=== PATIENT | female | born 1965 | race Caucasian/White ===

== ENCOUNTER 2024-02-12 13:00 | Emergency (ER) | payer OTHER, SELFPAY ==
[2024-02-12 13:06] VITALS: BP 131/60; PULSE 82; TEMP 36.6; O2SAT 95; BMI 28.3
--- NOTE | 2024-02-12 13:31 | US_ITS ---
The [address] [address] Patient Name: LATASHA NAVARRO MRN: [id number] date: 1965 Sex: F Assigned Patient Location: ED.MAIN Current Patient Location: ER Accession/Order Number: [id number] Exam Date: 02/12/2024 14:08 Report Date: 02/12/2024 15:02 At the request of: CARMELA NOBLE Procedure: US right upper quadrant EXAMINATION: US right upper quadrant HISTORY: RUQ pain, tenderness COMPARISON: No relevant comparison available. TECHNIQUE: Transabdominal evaluation of the right upper quadrant. FINDINGS: LIVER: Normal size and echotexture. Color Doppler demonstrates patent hepatic veins. PORTAL VEIN: Duplex Doppler demonstrates normal hepatopetal flow pattern with flow velocity averaging 21 cm/s. GALLBLADDER: No visible gallstones, wall thickening, or pericholecystic free fluid. Negative sonographic Canela's sign. BILIARY: No abnormal dilation or stones. Common bile duct diameter is within normal limits. PANCREAS: No visible mass, abnormal atrophy, or duct dilation. KIDNEY: No hydronephrosis. No visible mass or stones. Size: 12.7 x 5.9 x 5.2 cm US/US right upper quadrant IMPRESSION: 1. Limited evaluation of the gallbladder due to overlying bowel gas. 2. No appreciable acute abnormality secondary findings to suggest cholecystitis. Electronically authenticated by: CHERIE RUSH Date: 02/12/2024 15:02
--- NOTE | 2024-02-12 13:31 | ED_ITS ---
HPI - Abdominal Pain General Chief Complaint: Abdominal Pain Stated Complaint: GALL BLADDER PAIN Time Seen by Provider: 02/12/24 13:14 Source: patient Mode of arrival: walk-in History of Present Illness HPI narrative: 58-year-old female presents to the emergency department with complaint of abdominal pain. Onset 5 days ago. Acutely worse since this morning. Locating pain to the epigastric and right upper quadrant regions. Describes as sharp with radiation into her back. Has had nausea, no vomiting. Known history of gallstones. Patient also with history of nonalcoholic induced cirrhosis. Denies any fever, diarrhea. Quality:?Sharp Severity:?Moderate Timing:?As above, constant, worse today Context: Normal setting and activity? Modifying factors:?Pain worse with palpation Associated symptoms: As above Related Data Previous Rx's ?Medication ?Instructions ?Recorded famotidine 20 mg tablet (Pepcid) 20 mg PO BID #20 tabs 02/12/24 ibuprofen 600 mg tablet 600 mg PO Q8H PRN pain #20 tabs 02/12/24 ondansetron 4 mg disintegrating 4 mg PO Q8H PRN nausea and 02/12/24 tablet vomiting #10 tabs Allergies Allergy/AdvReac Type Severity Reaction Status Date / Time amoxicillin (From Augmentin) AdvReac Severe Hives Verified 02/12/24 13:06 clavulanic acid (From AdvReac Severe Hives Verified 02/12/24 13:06 Augmentin) metoclopramide (From Reglan) AdvReac Severe Muscle Pain Verified 02/12/24 13:06 Review of Systems ROS Narrative CONST: Denies any fever, chills RESP: Denies any shortness of breath CV: Denies any chest pain GI: +abd pain.? + nausea. Denies vomiting, diarrhea. : Denies any flank pain, dysuria MS: Denies any back pain, myalgias SKIN: Denies any color change, rash NEURO: Denies numbness, weakness PSYCHIATRIC: Denies confusion, agitation PFSH PFSH Social History Little interest or pleasure in doing things: not at all Feeling down, depressed, or hopeless: not at all Exam Narrative Exam Narrative: Vital signs reviewed Nurses notes noted CONST: Nontoxic, uncomfortable appearing, well nourished, in no distress.? No diaphoresis.?? HENT: normocephalic, atraumatic, moist mucous membrane, no abnormalities of the nose noted, hearing normal EYES: normal appearing conjunctiva, no apparent discharge bilat NECK: normal appearance CV: normal rate, regular rhythm, no murmur RESP: normal effort, speaking in complete sentences. Lung sounds clear and equal bilat.? No wheezes, rales, rhonchi GI: normal bowel sounds, soft, no distension, + tenderness to the epigastric and right upper quadrant regions. No rebound or guarding : no CVA tenderness MS: no edema, tenderness SKIN: no pallor NEURO: A&Ox 3, no focal findings PSYCH: normal mood, affect Constitutional Vital Signs, click to edit/add: Last Vital Signs Temp 97.9 F 02/12/24 13:06 Pulse 75 02/12/24 16:25 Resp 20 02/12/24 16:25 BP 120/56 02/12/24 16:25 Pulse Ox 92 L 02/12/24 16:25 O2 Del Method Room Air 02/12/24 16:25 Course Reevaluation(s) Reevaluation #1: Pain improved. Patient refusing transfer. She refused.? A thorough explanation of the risks and benefits of admission were discussed with her. This included but not limited to worsening pain, fevers, infection, biliary obstruction. She was informed of the risks and understood the risks, including but not limited to sudden , and continued to refuse.? She is awake, alert and competent and fully understands the potential ramifications of this decision. She understands that they may return at anytime for admission and/or further treatment should they change their mind. She states she will be contacting her fire management specialist in the morning to discuss further testing, evaluation. Time: 17:47 Vital Signs Vital signs: Vital Signs Temperature 97.9 F 02/12/24 13:06 Pulse Rate 82 02/12/24 13:06 Respiratory Rate 18 02/12/24 13:06 Blood Pressure 131/60 02/12/24 13:06 Pulse Oximetry 95 02/12/24 13:06 Oxygen Delivery Method Room Air 02/12/24 13:06 Temperature 97.9 F 02/12/24 13:06 Pulse Rate 75 02/12/24 16:25 Respiratory Rate 20 02/12/24 16:25 Blood Pressure 120/56 02/12/24 16:25 Pulse Oximetry 92 L 02/12/24 16:25 Oxygen Delivery Method Room Air 02/12/24 16:25 MDM - Abdominal Pain MDM Narrative Medical decision making narrative: This is a pleasant 58-year-old female presented to the emergency department with complaint of abdominal pain. Mainly located to the epigastric and right upper quadrant regions. Has known history of gallbladder stones, as well as, nonalc oholic cirrhosis. Has had associated nausea. Pain was worse today. On arrival, afebrile, vital signs stable On exam, nontoxic, somewhat uncomfortable appearing patient, in no apparent distress. Heart regular rate and rhythm. Lung sounds clear and equal bilaterally. Patient complains of tenderness mainly epigastric right upper quadrant regions. No other tenderness noted throughout the abdomen. No rebound or guarding. Neck IV access established, blood work was drawn Labs reveal no leukocytosis, anemia. Platelet count was a little low at 123. No electrolyte imbalance, renal impairment. Glucose 100. LFTs are not elevated. Lipase was 15. Urinalysis unremarkable. Ultrasound performed which, per radiology report reveals limited evaluation of the gallbladder due to overlying bowel gas. No appreciable acute abnormality secondary findings to suggest cholecystitis. CT abdomen pelvis imaging, per radiologist feels cholelithiasis and abnormally dilated gallbladder and common bile duct, but no appreciable wall thickening or surrounding inflammatory changes. Favor biliary colic, early bile duct obstruction Cholecystitis less likely based on imaging Medical recommendation at this time made for transfer to facility capable of ERCP, MRCP, surgery, gastroenterology. Call was initially placed to [facility]. Discussed with surgery on-call who states that they do not have ERCP or MRCP capabilities. We were looking for an appropriate hospital to transfer patient when patient made decision that she wanted to sign out AGAINST MEDICAL ADVICE. Her pain had improved. Patient states that she wants to follow-up with her established fire management specialist on her pain, CT report. Further discussion noted above in ED course. History and Record Review Additional records reviewed: No prior records available Management Discussion with another healthcare provider: Surgery at [facility] Additional Tests and Interventions IV fluids IV fluids: hydration Re-Evaluation See ED course, Disposition/plan ED disposition: Plan: Patient will be discharged to home AGAINST MEDICAL ADVICE.? Condition at time of disposition: stable, improved. Prescriptions sent to pharmacy: Pepcid, Zofran, ibuprofen Admission was considered. See MDM narrative above. PLEASE NOTE: Portions of the medical record may have been produced using [employer] industrial gas servicer helper and may contain errors with respect to translation of words which may not have been identified prior to finalization of the chart. Medical Records Attestation: I reviewed the patient's medical records. Lab Data Attestation: I reviewed the patient's lab results. Labs: Lab Results 02/12/24 02/12/24 Range/Units 13:30 13:48 WBC 4.9 (4.0-11.0) 10^3/uL RBC 4.58 (4.20-5.40) 10^6/uL Hgb 13.3 (12.0-16.0) g/dL Hct 39.5 (36.0-48.0) % MCV 86.2 (81.0-99.0) fL MCH 29.0 (26.7-34.0) pg MCHC 33.7 (29.9-35.2) g/dL RDW 14.6 (11.0-15.0) % Plt Count 123 L (150-450) 10^3/uL MPV 9.0 L (9.5-13.5) fL Neut % (Auto) 54.5 (43.0-75.0) % Lymph % (Auto) 31.4 (20.5-60.0) % Fergus % (Auto) 10.5 (1.7-12.0) % Eos % (Auto) 2.8 (0.9-7.0) % Baso % (Auto) 0.4 (0.2-2.0) % Neut # (Auto) 2.7 (1.4-6.5) 10^3/uL Lymph # (Auto) 1.6 (1.2-3.8) 10^3/uL Fergus # (Auto) 0.5 (0.3-0.8) 10^3/uL Eos # (Auto) 0.1 (0.0-0.7) 10^3/uL Baso # (Auto) 0.0 (0.0-0.1) 10^3/uL Abs Immat Gran (auto) 0.02 (0.00-0.03) 10^3/uL Imm/Tot Granulo (auto) 0.4 (0.0-0.5) % Sodium 141 (136-145) mmol/L Potassium 3.9 (3.5-5.1) mmol/L Chloride 106 (98-107) mmol/L Carbon Dioxide 25.3 (21.0-32.0) mmol/L Anion Gap 13.6 BUN 6.0 L (7.0-18.0) mg/dL Creatinine 0.64 (0.55-1.02) mg/dL Est GFR ( Amer) >60 (>=60 mL/min/1.73m^2) Est GFR (Non-Af Amer) >60 (>=60 mL/min/1.73m^2) BUN/Creatinine Ratio 9.4 Glucose 100 (74-106) mg/dL Calcium 8.7 (8.5-10.1) mg/dL Magnesium 2.1 (1.8-2.4) mg/dL Total Bilirubin 0.4 (0.2-1.0) mg/dL AST 22 (15-37) U/L ALT 17 (14-59) U/L Alkaline Phosphatase 100 (46-116) U/L Total Protein 7.7 (6.4-8.2) g/dL Albumin 3.7 (3.4-5.0) g/dL Globulin 4.0 g/dL Albumin/Globulin Ratio 0.9 Lipase 15.0 L (16.0-77.0) U/L Urine Color Lt. yellow (YELLOW) Urine Clarity Clear (CLEAR) Urine pH 7.5 (5.0-9.0) Ur Specific [place] 1.015 (1.005-1.025) Urine Protein Negative (NEG/TRACE) mg/dL Urine Glucose (UA) Negative (NEGATIVE) mg/dL Urine Ketones Negative (NEGATIVE) mg/dL Urine Occult Blood Trace-i (NEGATIVE) Urine Nitrite Negative (NEGATIVE) Urine Bilirubin Negative (NEGATIVE) Urine Urobilinogen 0.2 (0.2-1.0) EU/dL Ur Leukocyte Esterase Negative (NEGATIVE) Urine RBC 2-5 A (0-2) #/HPF Urine WBC None seen (NONE SEEN) #/HPF Ur Squamous Epith Cells Rare (NONE/RARE) #/LPF Urine Crystals None seen (None Seen) #/HPF Urine Bacteria None seen (NONE SEEN) #/HPF Urine Casts None seen (NONE SEEN) #/LPF Urine Mucus None seen (NONE SEEN) Imaging Data Ultrasound right upper quadrant, CT abdomen pelvis: Radiologist's impression: ITS Impressions Upper Quadrant Ultrasound 02/12/24 13:31 IMPRESSION: 1. Limited evaluation of the gallbladder due to overlying bowel gas. 2. No appreciable acute abnormality secondary findings to suggest cholecystitis. Electronically authenticated by: CHERIE RUSH Date: 02/12/2024 15:02 Abdomen/Pelvis CT 02/12/24 16:04 IMPRESSION: 1. Cholelithiasis and abnormally dilated gallbladder and common bile duct, but no appreciable wall thickening or surrounding inflammatory changes. Consider ultrasound evaluation. 2. Fatty infiltration of liver. Electronically authenticated by: CHERIE RUSH Date: 02/12/2024 16:18 Discharge Plan Discharge Stand Alone Forms: Portal Instructions Chief Complaint: Abdominal Pain Clinical Impression: Biliary colic, Common bile duct dilation, Left against medical advice Patient Disposition: Left Against Medical Advice Time of Disposition Decision: 17:40 Condition: Good Mode of Transportation: Private Vehicle Prescriptions / Home Meds: New famotidine [Pepcid] 20 mg tablet 20 mg PO BID Qty: 20 0RF ibuprofen 600 mg tablet 600 mg PO Q8H PRN (Reason: pain) Qty: 20 0RF ondansetron 4 mg tablet,disintegrating 4 mg PO Q8H PRN (Reason: nausea and vomiting) Qty: 10 0RF Print Language: Nepali Instructions: Biliary Colic (ED), Against Medical Advice (ED) Additional Instructions: RETURN ANYTIME FOR THE ADMISSION/TRANSFER YOU REFUSED Referrals: Your Bottler Helper [Other] - 02/13/24 Discharge Date/Time: 02/12/24 17:48
[2024-02-12] MEDS: MORPHINE SULFATE 4 MG/ML VIAL IV (13:41)
[2024-02-12] MEDS: 0.9 % SODIUM CHLORIDE 1,000 ML 999 ML IV (13:41)
[2024-02-12] MEDS: ONDANSETRON PF 4 MG/2 ML VIAL IV (13:41)
[2024-02-12 13:48] LABS: Basophils Percent Auto 0.4 % (0.2-2.0); Eosinophils Absolute Auto 0.1 10^3/uL (0.0-0.7); Eosinophils Percent Auto 2.8 % (0.9-7.0); Hematocrit 39.5 % (36.0-48.0); Hemoglobin 13.3 g/dL (12.0-16.0); Immature Granulocytes Abs Auto 0.02 10^3/uL (0.00-0.03); Immature Granulocytes Pct Auto 0.4 % (0.0-0.5); Lymphocytes Absolute Auto 1.6 10^3/uL (1.2-3.8); Lymphocytes Percent Auto 31.4 % (20.5-60.0); Mean Corpuscular HGB Conc 33.7 g/dL (29.9-35.2); Mean Corpuscular Volume 86.2 fL (81.0-99.0); Monocytes Absolute Auto 0.5 10^3/uL (0.3-0.8); Monocytes Percent Auto 10.5 % (1.7-12.0); Neutrophils Absolute Auto 2.7 10^3/uL (1.4-6.5); Neutrophils Percent Auto 54.5 % (43.0-75.0); Platelet Count 123 10^3/uL (150-450); Red Blood Count 4.58 10^6/uL (4.20-5.40); Red Cell Distribution Width 14.6 % (11.0-15.0); White Blood Count 4.9 10^3/uL (4.0-11.0)
[2024-02-12 14:04] LABS: Alanine Aminotransferase 17 U/L (14-59); Albumin Globulin Ratio 0.9; Albumin Level 3.7 g/dL (3.4-5.0); Alkaline Phosphatase 100 U/L (46-116); Anion Gap 13.6; Aspartate Amino Transferase 22 U/L (15-37); BUN Creatinine Ratio 9.4; Bilirubin Total 0.4 mg/dL (0.2-1.0); Calcium 8.7 mg/dL (8.5-10.1); Carbon Dioxide 25.3 mmol/L (21.0-32.0); Chloride 106 mmol/L (98-107); Estimated GFR (African America >60 (>=60 mL/min/1.73m^2); Estimated GFR (Non-African Ame >60 (>=60 mL/min/1.73m^2); Glucose 100 mg/dL (74-106); Magnesium 2.1 mg/dL (1.8-2.4); Potassium 3.9 mmol/L (3.5-5.1); Sodium 141 mmol/L (136-145); Total Protein 7.7 g/dL (6.4-8.2)
[2024-02-12 14:10] LABS: Bilirubin Urine NEGATIVE (NEGATIVE); Blood Urine TRACE-I (NEGATIVE); Clarity Urine CLEAR (CLEAR); Color Urine LT. YELLOW (YELLOW); Glucose Urine UA NEGATIVE (NEGATIVE); Ketones Urine NEGATIVE (NEGATIVE); Leukocyte Esterase Urine NEGATIVE (NEGATIVE); Nitrite Urine NEGATIVE (NEGATIVE); Protein Urine NEGATIVE (NEG/TRACE); Specific Gravity Urine 1.015 (1.005-1.025); Urobilinogen Urine 0.2 EU/dL (0.2-1.0); pH Urine 7.5 (5.0-9.0)
[2024-02-12 14:18] LABS: Bacteria Urine NONE SEEN #/HPF (NONE SEEN); Cast Seen? NONE SEEN #/LPF (NONE SEEN); Crystals Seen? None Seen #/HPF (None Seen); Mucus Urine NONE SEEN (NONE SEEN); Squamous Epithelial Cell Urine RARE #/LPF (NONE/RARE); WBC Urine NONE SEEN #/HPF (NONE SEEN)
--- NOTE | 2024-02-12 16:04 | CT_ITS ---
[address] [address] Patient Name: LATASHA NAVARRO MRN: [id number] date: 1965 Sex: F Assigned Patient Location: ER Current Patient Location: Accession/Order Number: [id number] Exam Date: 02/12/2024 15:55 Report Date: 02/12/2024 16:18 At the request of: CARMELA NOBLE Procedure: CT abdomen pelvis w con EXAMINATION: CT abdomen pelvis w con HISTORY: right upper abd pain COMPARISON: No relevant comparison available. TECHNIQUE: Axial, Coronal, and Sagittal images were obtained without and/or with IV contrast as indicated by examination type. Dose reduction techniques were achieved by using automated exposure control and/or adjustment of mA and/or kV according to patient size and/or use of iterative reconstruction technique. FINDINGS: LUNG BASES: Discoid atelectasis versus scarring within lung bases. LIVER: Fatty infiltration. Slightly nodular margins which can be seen with cirrhosis. BILIARY: Distended gallbladder containing multiple tiny granular stones. No wall thickening or free fluid. Abnormally dilated common bile duct, 12 mm. PANCREAS: No lesion, fluid collection, or abnormal duct dilatation. SPLEEN: No enlargement or focal lesion. ADRENALS: No mass or enlargement. KIDNEYS: 8 mm round hypodensity within left kidney, nonspecific but favoring a cyst. No mass, obstruction, or calcification. BOWEL/MESENTERY: No visible mass, obstruction, or bowel wall thickening. AORTA/VASCULAR: No aneurysm or dissection. RETROPERITONEUM: No mass or adenopathy. LYMPH NODES: No adenopathy. URINARY BLADDER: No visible focal wall thickening, lesion, or calculus. PELVIC ORGANS: No visible mass. Pelvic organs appropriate for patient age. ABDOMINAL WALL: No mass or hernia. BONES: No bony lesion or fracture. OTHER: Negative. CT/CT abdomen pelvis w con IMPRESSION: 1. Cholelithiasis and abnormally dilated gallbladder and common bile duct, but no appreciable wall thickening or surrounding inflammatory changes. Consider ultrasound evaluation. 2. Fatty infiltration of liver. Electronically authenticated by: CHERIE RUSH Date: 02/12/2024 16:18
[2024-02-12 16:25] VITALS: BP 120/56; PULSE 75; O2SAT 92
[2024-02-12] MEDS: KETOROLAC TROMETHAMINE 30 MG/ML VIAL 15 MG IVP (16:53)
[2024-02-12] MEDS: DIPHENHYDRAMINE HCL 50 MG/ML VIAL 25 MG IV (16:53)
== END 2024-02-12 17:48 | disposition left against medical advice (07) ==
PROVIDERS: Physician Assistant; Emergency Provider Emergency Medicine; Family Provider Family Medicine
DX: K80.50 Calculus of bile duct without cholangitis or cholecystitis without obstruction (principal); Z53.29 Procedure and treatment not carried out because of patient's decision for other reasons; K83.8 Other specified diseases of biliary tract; K74.60 Unspecified cirrhosis of liver
CPT/HCPCS: 36415; 74177; 76705; 80053; 81001; 83690; 83735; 85025; 96374; 96375; 99285; J1200; J1885; J2270; J2405; Q9967

== ENCOUNTER 2024-07-16 17:25 | Emergency (ER) | payer OTHER, SELFPAY ==
--- OUTSIDE RECORDS SUMMARY | 2023-12-04 06:24 | XMS_ITS ---
Author Organization [facility] Address [address] [place] [address] Care Team Providers Care Speeder Hand Name Role Phone Might Jean Claude SETH Primary Care Provider Unavailab Fiona Dobbins Unavailable [phone] Nic Russell Unavailable [phone] REASON FOR VISIT Update Demographics - Personal Info Encounters Encounter Location Date Provider Diagnosis [facility] [address] [place] [address] 12/04/2023 Nic Russell Plan Of Treatment No Information Progress Notes * LATASHA NAVARRO LDOB: [birth year] (58 yo F)Acc No.[id number]:12/04/2023 Patient: Jorge DAVIS LATASHA Jesus :1965 A ge:58 Y S ex:Female Address:[address] [place] [address], [address] * true * Date: Generated for Funmilayo ramírez/Albin/eTransmitting on: 0 07/16/2024 05:30 PM EDT
--- OUTSIDE RECORDS SUMMARY | 2023-12-04 06:27 | XMS_ITS ---
Author Organization [facility] Address [address] [place] [address] Care Team Providers Care Cd Technician Name Role Phone Might Jean Claude SETH Primary Care Provider Unavailab Fiona Dobbins Unavailable [phone] Nic Russell Unavailable [phone] REASON FOR VISIT Update Demographics - Personal Info Encounters Encounter Location Date Provider Diagnosis [facility] [address] [place] [address] 12/04/2023 Nic Russell Plan Of Treatment No Information Progress Notes * LATASHA NAVARRO LDOB: [birth year] (58 yo F)Acc No.[id number]:12/04/2023 Patient: Jorge DAVIS LATASHA Jesus :1965 A ge:58 Y S ex:Female Address:[address] [place] [address], [address] * true * Date: Generated for Funmilayo ramírez/Albin/eTransmitting on: 0 07/16/2024 05:30 PM EDT
--- OUTSIDE RECORDS SUMMARY | 2024-03-27 08:45 | XMS_ITS ---
Author Organization [facility] vices Address [address] [place] [id number] Care Team Providers Care Salvage Winder And Inspector Name Role Phone Sony Monteiro Unavailable [phone] REASON FOR VISIT F/u Social History Sex Assigned At : Social History Observation Description Sex Assigned At Female Encounters Encounter Location Date Provider Diagnosis Main [address] [place] [id number] 03/27/2024 Sony Monteiro Plan Of Treatment Next Appt Details Provider Name:Paulbaltazar Monteiro , 10/01/2024 01:30:00 PM, [address] [place], [id number], Progress Notes * Steffi NAVARRO LDOB: [birth year] (59 yo F)Acc No.[id number]:03/27/2024 Patient: Steffi MAY Provider: MICAELA Hanley :1965 A ge:58 Y S ex:Female Date:03/27/2024 Address:[address], [place], [place] Subjective: * Chief Complaints: * 1 . F/u. * Medical History: Objective: * Vitals: Assessment: Plan: * Treatment: Care Plan: * Problems: * Billing Information: * Visit Code: * Procedure Codes: Care Plan Details* * Electronic signature of MICAELA Moody on 07/16/2024 at 05:29 PM EDT Sign off status: Pending * Provider: Yahaira Noyola PMHNP-BC Date: 0 03/27/2024 Generated for Funmilayo Smith/Tom on: 0 07/16/2024 05:29 PM EDT
--- OUTSIDE RECORDS SUMMARY | 2024-07-14 19:40 | XMS_ITS | Encounter Summary ---
Author Organization [facility] Address [address] [place] [address] Care Team Providers Care Minesweeping Officer Name Role Phone Jean Claude Mason APRN - NEEDLE BAR MOLDER Primary Care Provider Reason for Visit * Reason Comments Other Congestion and cough x 24 hours. Encounter Details Date Type Department Care Team (Latest Contact Info) Description 07/14/2024 7:40 PM EDT Telemedicine On Demand [facility] - Virtualist Primary Care [address] [place] [address] Rosemary Taylor APRN - CNP [address] [place] [address] Viral upper respiratory tract infection with cough (Primary Dx) Social History Tobacco Use Types Packs/Day Years Used Date Smoking Tobacco: Every Day Cigarettes 0.5 40.4 Started: 02/14/1984 Smokeless Tobacco: Never Comments:Quit for 3 years wh en i found out i was in august 1998 Alcohol Use Standard Drinks/Week Comments Not Currently 0 (1 standard drink = 0.6 oz pure alcohol) Recently quit because of health issues [facility] Utilities Answer Date Recorded In the past 12 months has th e electric, gas, oil, or water company threatened to shut off services in your home? No 03/09/2024 Overall Financial Resource Strain (CARDIA) Answe r Date Recorded How hard is it for you to pa y for the very basics like food, housing, medical care, and heating? Somewhat hard 11/26/2023 PHQ-2 Answer Date Recorded PHQ-9 Total Score 20 03/09/2024 Hunger Vital Sign Answer Date Recorded Within the past 12 months, y ou worried that your food would run out before you got the money to buy more. Often true Within the past 12 months, t he food you bought just didn't last and you didn't have money to get more. Sometimes true PRAPARE - Transportation Answer Date Re corded In the past 12 months, has l ack of transportation kept you from medical appointments or from getting medications? Yes 02/14 In the past 12 months, has l ack of transportation kept you from meetings, work, or from getting things needed for daily living? Yes 03/09/2024 Housing Stability Vital Sign Answer Abdi e Recorded Unable to Pay for Housing in the Last Year Not o n file 12/27/2022 Number of Places Lived in the Last Year Not on f ile 12/27/2022 In the last 12 months, was t here a time when you did not have a steady place to sleep or slept in a senior living (including now)? Patient refused 12/27/2022 Housing Stability Vital Sign Answer Abdi e Recorded In the last 12 months, was t here a time when you were not able to pay the mortgage or rent on time? Patient declined 03/09/19 In the past 12 months, how m any times have you moved where you were living? 3 03/09/2024 At any time in the past 12 m [facility], were you homeless or living in a senior living (including now)? No 03/09/2024 Food Insecurity Answer Date Recorded Within the past 12 months, y ou worried that your food would run out before you got the money to buy more. 3 03/09/2024 Within the past 12 months, t he food you bought just didn't last and you didn't have money to get more. 2 03/09/2024 Interpersonal Safety Domain Source: IP Abuse Scr eening Answer Date Recorded Read-Only, Retired: Physical Abuse Denies 03/24/2023 Read-Only, Retired: Verbal Abuse Denies 03/24/2023 Read-Only, Retired: Emotional abuse Denies 03/24/2023 Read-Only, Retired: Financial Abuse Denies 03/24/2023 Read-Only, Retired: Sexual abuse Denies 03/24/2023 Comments No Sex and Gender Information Value Date Recorded Sex Assigned at Female 06/16/2023 3:36 AM EDT Legal Sex Female 4:44 PM EST Gender Identity Female 06/16/2023 3:36 AM EDT Sexual Orientation Straight 06/16/2023 3: 36 AM EDT documented as of this encounter Patient Instructions * Attachments The following attachments cannot be sent through Care Everywhere. * URI (Upper Respiratory Infection): Viral (Citizen Of [place]) * COPD: URI: General Info (Citizen Of [place]) documented in this encounter Progress Notes * Rosemary Taylor APRN - NEEDLE BAR MOLDER - 07/14/2024 7:34 PM EDT Images from the original note were not included. Steffi Bills, was evaluated through a synchronous (real-time) audio-video encounter. The patient (or guardian if applicable) is aware that this is a billable service, which includes applicable co-pays. This Virtual Visit was conducted with patient's (and/or legal guardian's) consent. Patient mary ntification was verified, and a caregiver was present when appropriate. The patient was located at Home: [address] [place] [address] Provider was located at Home (Appt Dept State): [place] Confirm you are appropriately licensed, registered, or certified to deliver care in the state wherethe patient is located as indicated above. If you are not or unsure, please re-schedule the visit: Yes, I confirm. Steffi Bills (: 1965) is a Established patient, presenting virtually for evaluation of the following: Nasal congestion an loose cough x 24 hours. Below is the assessment and plan developed based on review of pertinent history, physical exam, labs, studies, and medications. Assessment & Plan Viral upper respiratory tract infection with cough Tylenol for fever/pain Continue to use ventolin inhaler as ordered. Use Flovent after ventolin and then rinse mouth. Increase fluids by 25% Take Mucinex to thin secretions Room humidification Saline nasal rinses Salt water throat gargles Throat lozenges prn Warm fluids like tea or broth may soothe the throat and cough Please review educational material in After Visit Summary Discussed red flags and when to seek emergency care. Follow up as needed with PCP and if symptoms worsen or do not improve. Patient verbalized understanding and in agreement with plan of care. Return if symptoms worsen or fail to improve in 48 hours. Jasmin Santacruz is a 58-year-old female with multiple comorbidities most notable for COPD, hypertension and liver cirrhosis. Presents today with a 24-hour history of nasal congestion and loose cough. Complains of a headache due to her frequent coughing. Denies ear pain, but does state that her throat is sore.Denies fever, although states that she does feel cold and clammy at times. Denies body aches, denies chills. States she is having some mild difficulty breathing especially after she has had a coughing episode. She is able to speak in full sentences. And has been taking [id number] Tylenol cough and cold for symptom relief. Objective Constitutional: [x] Appears well-developed and well-nourished [x] No apparent distress Able to speak in full sentences. [] Abnormal - Mental status: [x] Alert and awake [x] Oriented to person/place/time [x] Able to follow commands [] Abnormal - Eyes: EOM [x] Normal [] Abnormal - Sclera [x] Normal [] Abnormal - Discharge [x] None visible [] Abnormal - HENT: [x] Normocephalic, atraumatic [] Abnormal - [] Mouth/Throat: Mucous membranes are moist External Ears [x] Normal [] Abnormal - Neck: [x] No visualized mass [] Abnormal - Pulmonary/Chest: [x] Respiratory effort normal [x] No visualized signs of difficulty breathing or respiratory distress [] Abnormal - Musculoskeletal: [] Normal gait with no signs of ataxia [] Normal range of motion of neck [] Abnormal - Neurological: [x] No Facial Asymmetry (Cranial nerve 7 motor function) (limited exam due to video visit) [] No gaze palsy [] Abnormal - Skin: [x] No significant exanthematous lesions or discoloration noted on facial skin [] Abnormal - Psychiatric: [x] Normal Affect [] Abnormal - [] No Hallucinations Other pertinent observable physical exam findings:- Audible congested cough. On this date 07/14/2024 I have spent 20 minutes reviewing previous notes, test results, and other pertinent medical information with the patient, discussing the diagnosis and importance of compliance with the treatment plan as well as documenting on the day of the visit. --MARGY Rosales CNP documented in this encounter Plan of Treatment Upcoming Encounters Date Type Department Care Team (Late st Contact Info) Description 12/16/2024 1:00 PM EST Office Visit [facility] [place] [address] [place] [address] Jean Claude Mason APRN - CNP [address] [place] [address] 6 month documented as of this encounter Visit Diagnoses Diagnosis Viral upper respiratory tract infection with cough- Primary Acute upper respiratory infections of unspecified site documented in this encounter Care Teams Minesweeping Officer Relationship Specialty Start Date End Date Jean Claude Mason APRN - CNP [address] [place] [address] PCP - General Family Nurse Practitioner 10/14/21 documented as of this encounter
[2024-07-16] VITALS (7 sets, daily range): BP systolic 107; BP diastolic 66; PULSE 79–88; TEMP 36.6; O2SAT 89–99; BMI 30.3
--- OUTSIDE RECORDS SUMMARY | 2024-07-16 17:29 | XMS_ITS | Encounter Summary ---
Author Organization [facility] [employer] Address [id number] [address] [place] [address] Care Team Providers Care Parts Analyst Name Role Phone Jean Claude Mason CARTOGRAPHY PROFESSOR-STATIC BALANCER Primary Care Provider [phone] Encounter Details Date Type Department Care Team (Late st Contact Info) Description 11/17/2022 Orders Only [facility] [address] [place] [id number] External, Scanning Provider Social History Tobacco Use Types Packs/Day Years Used Date Smoking Tobacco: Every Day Cigarettes Smokeless Tobacco: Never Alcohol Use Standard Drinks/Week Comments Not Currently 0 (1 standard drink = 0.6 oz pur e alcohol) Childcare Answer Date Recorded Childcare Unknown 07/25/2018 Employment Answer Date Recorded Employment Unknown 07/25/2018 Hunger Screening Answer Date Recorded Within the past 12 months we worried whether our food would run out before we got money to buy more. Sometimes True 022 Within the past 12 months th e food we bought just didn't last and we didn't have money to get more. Sometimes True 01/27/2022 Purpose - Life Answer Date Recorded Purpose and direction in life Unknown Comments No Sex and Gender Information Value Date Recorded Sex Assigned at Female 12/14/2021 10:39 AM EDT Legal Sex Female 11:34 AM EDT Gender Identity Female 12/14/2021 10:39 AM EDT Sexual Orientation Straight 12/14/2021 10 :39 AM EDT documented as of this encounter Plan of Treatment Not on file documented as of this encounter Procedures Procedure Name Priority Date/Time Associated Diagnosis Comments ECG 12-LEAD Routine 11/03/2022 2:58 PM EDT documented in this encounter Results * ECG 12 lead (11/03/2022 2:58 PM EDT) us Scanning Provider External ECG ORDERABLES Final Result Performing Organization Address City/State/[facility] Co de Phone Number MANUALLY TRANSCRIBED RESULTS documented in this encounter Visit Diagnoses Not on filedocumented in this encounter Care Teams Parts Analyst Relationship Specialty Start Date End Date Might, Jean Claude Chatman, CARTOGRAPHY PROFESSOR-STATIC BALANCER [address] [place] [id number] PCP - General Family Medicine 11/11/21 documented as of this encounter
--- OUTSIDE RECORDS SUMMARY | 2024-07-16 17:29 | XMS_ITS | Clinical Summary ---
Author Organization [employer] Address [id number] [address] [place] [address] Care Team Providers Care Leak Hunter Name Role Phone Jean Claude Mason ROTATIONAL MOULDING OPERATOR-CLOTHING EXAMINER Primary Care Provider [phone] [phone] Allergies Active Allergy Reactions Criticality Noted Date Comments Amoxicillin 12/06/2016 Amoxicillin-Pot Clavulanate 12/07/19 17 Ciprofloxacin 12/06/2016 Codeine 12/06/2016 Metoclopramide 12/06/2016 Morphine 12/06/2016 Metoclopramide Hcl muscle cramps 12/14/2021 Medications MULTIVIT WITH MINERALS/LUTEIN (MULTIVITAMIN 50 PLUS ORAL) Take by mouth. Active gabapentin (NEURONTIN) 300 mg capsule Take by mouth. Taking 300 mg noon and 600 mg bid 2 Active tiZANidine (ZANAFLEX) 4 mg tablet Take 1 tablet (4 mg total) by mouth in the morning and 1 tablet (4 mg total) before bedtime. 2 Active montelukast (SINGULAIR) 10 mg tablet Take 1 tablet (10 mg total) by mouth nightly. Active spironolactone (ALDACTONE) 25 mg tablet Take 1 tablet (25 mg total) by mouth in the morning. 90 tablet 3 3 Active buprenorphine-nal oxone (SUBOXONE) 8-2 mg per SL tablet Place 1 tablet under the tongue in the morning. Can take up to 3 qd. Active nitroglycerin (NITROSTAT) 0.[address] 1 tablet (0.4 mg total) under the tongue every 5 (five) minutes as needed for chest pain. 25 tablet 4 Active furosemide (LASIX) 40 mg tablet Take 1 tablet (40 mg total) by mouth daily. Active aspirin 81 mg Take 1 tablet (81 mg total) by mouth in the morning. Active ranolazine (RANEXA) 500 mg 12 hr tablet Take 1 tablet (500 mg total) by mouth in the morning and 1 tablet (500 mg total) before bedtime. 180 tablet 3 4 Active amLODIPine (NORVASC) 10 mg tabletIndications :Primary hypertension Take 1 tablet (10 mg total) by mouth in the morning. 90 tablet 3 4 Active Active Problems Problem Noted Date Diagnosed Date Atherosclerosis of [place] co ronary artery of [place] heart with stable angina pectoris 11/10/2023 Mixed hyperlipidemia 09/15/2023 Tobacco abuse 09/15/2023 H/O cardiac radiofrequency ablation 09/15/2023 Lumbar spondylosis 02/09/2022 Spinal stenosis of lumbar re gion with neurogenic claudication 01/12/2022 Overview (01/12/2022): Added automatically from request for surgery [id number] [id number] (supraventricular tachycardia) Nicotine dependence, cigarettes, uncomplicated Hypertensive heart disease without heart failure Hypertension Resolved Problems Problem Noted Date Diagnosed Date Resolved Date Unstable angina 09/15/2023 11/10/2023 Immunizations Immunization Administration Dates Next Due Tdap 07/12/2023,10/04/2019 Family History Medical History Relation Name Comments Arthritis Father Brain Tumor Father Cancer Father Coronary artery disease Father Diabetes Father Heart attack Father Heart disease Father Hypertension Father Arthritis Mother Atrial fibrillation Mother Cancer Mother Hypertension Mother Alzheimer's disease Paternal Grandfather Stroke Paternal Grandmother Aneurysm Sister Asthma Sister Cancer Sister Heart disease Sister Hypertension Sister Relation Name Status Comments Father Mother Alive Paternal Grandfather Paternal Grandmother Sister Social History Tobacco Use Types Packs/Day Years Used Date Smoking Tobacco: Every Day Cigarettes Smokeless Tobacco: Never Tobacco Cessation:Ready to Q uit: Not Asked; Counseling Given: Not Answered Alcohol Use Standard Drinks/Week Comments Not Currently 0 (1 standard drink = 0.6 oz pur e alcohol) Childcare Answer Date Recorded Childcare Unknown 07/25/2018 Employment Answer Date Recorded Employment Unknown 07/25/2018 Hunger Screening Answer Date Recorded Within the past 12 months we worried whether our food would run out before we got money to buy more. Never True 11/23/2023 Within the past 12 months th e food we bought just didn't last and we didn't have money to get more. Never True 11/23/2023 Purpose - Life Answer Date Recorded Purpose and direction in life Unknown Comments No Sex and Gender Information Value Date Recorded Sex Assigned at Female 12/14/2021 10:39 AM EDT Legal Sex Female 11:34 AM EDT Gender Identity Female 12/14/2021 10:39 AM EDT Sexual Orientation Straight 12/14/2021 10 :39 AM EDT Last Filed Vital Signs Vital Sign Reading Time Taken Comments Blood Pressure 135/57 11/23/2023 6:09 AM EDT Pulse 82 11/23/2023 7:14 AM EDT Temperature 36.7 C (98 F) 11/23/2023 6:09 AM EDT Respiratory Rate 17 11/23/2023 7:14 AM EDT Oxygen Saturation 93% 11/23/2023 7:14 AM EDT Inhaled Oxygen Concentration - - Weight 76.7 kg (169 lb 1.6 oz) 11/23/2023 6:09 A M EDT Height 160 cm (5' 3 ) 11/23/2023 6:09 AM EDT Body Mass Index 29.95 11/23/2023 6:09 AM EDT Plan of Treatment Health Maintenance Due Date Last Done Comments Tobacco Counseling 1965 Depression Screening 1978 Adult BMI Follow Up Plan 1984 Pap Smear 07/16/1987 COVID-19 Vaccine ( - 2023-2 5 season) 2023 01/12/2022, 03/05/2021, 06/11/2020, Additional history exists Influenza Vaccine 10/14/2024 11/28/2023, 01/12/2022 Adult BMI Screening 11/22/2024 11/23/2023 Tobacco Screening 11/22/2024 11/23/2023 DTaP,Tdap and Td Vaccines (4 - Td or Tdap) 07/11/2033 07/12/2023, 10/04/2019, 10/15/2014 Zoster (Shingles) Vaccine Completed 01/21/2022, 07/2021 Medical Devices Not on file Insurance [facility] MEDICAID * Guarantor: Sanju Steffi L Account Type Relation to Patient Date of Phone Billing Address Workers Comp Self 1965 [address] [place] [address] WORKER'S COMPENSATION WORKER'S COMPENSATION [facility] PLAN MEDICAID Advance Directives * Full Code (Latest Code Status on File) Date Activated Date Inactivated Comments 02/09/2022 5:02 PM 02/10/2022 3:55 PM Care Teams Leak Hunter Relationship Specialty Start Date End Date Isabella, Jean Claude Chatman APRN-CLOTHING EXAMINER [address] [place] [address] PCP - General Family Medicine 11/11/21
--- OUTSIDE RECORDS SUMMARY | 2024-07-16 17:29 | XMS_ITS | Encounter Summary ---
Author Organization [facility] [employer] Address [id number] [address] [place] [address] Care Team Providers Care Spring Inspector Name Role Phone Jean Claude Mason BIOINFORMATICS ASSOCIATE-BIOMEDICAL EQUIPMENT TECHNICIAN Primary Care Provider [phone] Reason for Visit * Reason Onset Date Comments med refill request 03/30/2022 Encounter Details Date Type Department Care Team (Late st Contact Info) Description 03/30/2022 Telephone [facility] [address] [place] [address] Ranjana Nash, RN med refill request Social History Tobacco Use Types Packs/Day Years Used Date Smoking Tobacco: Every Day Cigarettes Smokeless Tobacco: Never Alcohol Use Standard Drinks/Week Comments Not Currently 0 (1 standard drink = 0.6 oz pur e alcohol) occasionally Childcare Answer Date Recorded Childcare Unknown 07/25/2018 [...] Orientation Straight 12/14/2021 10 :39 AM EDT COVID-19 Exposure Response Date Recorded In the last month, have you been in contact with someone who was confirmed or suspected to have Coronavirus / COVID-19? No / Unsure 03/24/2022 1:13 PM EST documented as of this encounter Miscellaneous Notes * Telephone Encounter - Ranjana Nash RN - 03/30/2022 1:48 PM EST Neeta calls asking for Oxycodone to be refilled. She states it is not due until Monday, but she did have to take 2 additional pills as she was having some intense leg pain. Pended Oxycodone to Hanna. documented in this encounter Plan of Treatment Not on file documented as of this encounter Visit Diagnoses Not on filedocumented in this encounter Care Teams Spring Inspector Relationship Specialty Start Date End Date Isabella, Jean Claude Chatman, BIOINFORMATICS ASSOCIATE-BIOMEDICAL EQUIPMENT TECHNICIAN [address] [place] [address] PCP - General Family Medicine 11/11/21 documented as of this encounter
--- OUTSIDE RECORDS SUMMARY | 2024-07-16 17:29 | XMS_ITS | Encounter Summary ---
Author Organization [facility] Address [id number] [address] [place] [address] Care Team Providers Care Urologist Md Name Role Phone Jean Claude Mason IRISH MOSS OPERATOR-COTTON FACTOR Primary Care Provider [phone] Encounter Details Date Type Department Care Team (Late st Contact Info) Description 02/16/2022 Telephone [facility] [address] [place] [phone] Mo Garcia MD [address] [place] [address] [address] [place] [phone] Social History Tobacco Use Types Packs/Day Years [...] have Coronavirus / COVID-19? No / Unsure 02/09/2022 9:01 AM EST documented as of this encounter Miscellaneous Notes * Telephone Encounter - Kimberly Pedro - 02/16/2022 12:09 PM EST Steffi leaves a message saying she has questions regarding her surgery. * Telephone Encounter - Kimberly Pedro - 02/16/2022 12:09 PM EST Steffi says that she is still having to take pain medication and wanted to know if that is normal.Explained to Steffi it is normal. She was also encouraged to use ice. She says that she is using ice but she can not use tylenol due to cirrhosis. Explained to Steffi that it sounds like she is recovering appropriately and notified her to call back if she has any more questions or concerns. Prescription for oxycodone pended to Hanna Fernández CNP documented in this encounter Plan of Treatment Not on file documented as of this encounter Visit Diagnoses Not on filedocumented in this encounter Care Teams Urologist Md Relationship Specialty Start Date End Date Jean Claude Mason APRN-FRANSISCO [address] [place] [address] PCP - General Family Medicine 11/11/21 documented as of this encounter
--- OUTSIDE RECORDS SUMMARY | 2024-07-16 17:29 | XMS_ITS | Encounter Summary ---
Author Organization [employer] Address [facility] [place] [id number] [address] [place] [address] Care Team Providers Care Prescriptionist Name Role Phone Jean Claude Mason [employer] SALES ENGINEER-STEAM PLANT CONTROL ROOM OPERATOR Primary Care Provider [phone] Reason for Visit * Reason Comments Med Refill Encounter Details Date Type Department Care Team (Late st Contact Info) Description 11/18/2016 Refill [facility] [address] [place] [id number] Bruce Kinney MD [address] [place] [address] Med Refill Social History Tobacco Use Types Packs/Day Years Used Date Smoking Tobacco: Never Assessed Comments Unknown Sex and Gender Information Value Date Recorded Sex Assigned at Female 12/14/2021 10:39 AM EDT Legal Sex Female 11:34 AM EDT Gender Identity Female 12/14/2021 10:39 AM EDT Sexual Orientation Straight 12/14/2021 10 :39 AM EDT documented as of this encounter Miscellaneous Notes * Telephone Encounter - Esvin Mar RN - 11/18/2016 1:02 PM EDT Patient needs appt, defer to PCP has not been seen since 02/2015 documented in this encounter Plan of Treatment Not on file documented as of this encounter Visit Diagnoses Not on filedocumented in this encounter Care Teams Prescriptionist Relationship Specialty Start Date End Date Isabella, Jean Claude Chatman APRN-STEAM PLANT CONTROL ROOM OPERATOR [address] [place] [address] PCP - General Family Medicine 11/11/21 documented as of this encounter
--- OUTSIDE RECORDS SUMMARY | 2024-07-16 17:29 | XMS_ITS | Patient Health Record ---
Author Organization [facility] Address [address] [place] [address] Care Team Providers Care Grade Checker Name Role Phone Might Jean Claude SETH Primary Care Provider Unavailab Fiona Dobbins Unavailable [phone] Nic Russell Unavailable [phone] Allergies Allergen (clinical drug ingredient) Drug/Non Drug Allergy documented on EMR Reaction Allergy Type Onset Date Status metoclopramide Reglan Muscle contractions Drug Allergy Active amoxicillin / clavulanate Augmentin hives Drug Allergy Active codeine codeine itching Drug Allergy Active morphine morphine stop breathing Drug Allergy Ac tive Reason For Referral No Information Medications Medication SIG (Take, Route, Fr equency, Duration) Notes Start Date End Date Status DULoxetine Unknown Mobic 15 mg 1 tab(s) orally once a day for 30 day(s) 12/05/2022 Unknown amLODIPine Unknown tizanidine hcl Unkno wn propranolol Unknown Oxycodone Unknown cloNIDine Unknown spironolactone Unkno wn gabapentin Unknown montelukast Unknown FLUoxetine Unknown furosemide Unknown Social History Tobacco Use: Social History Observation Description Date Details (start date - stop date) Current Smoker NA - NA Smoking History Question Answer Notes Smoking Status Current Smoker How much do you smoke 6 - 10 How soon after you wake up do you smoke your fir st cigarette? 31 - 60 min AUDIT-C (Standard) Question Answer Notes Did you have a drink containing alcohol in the p ast year? No Points 0 Interpretation Negative Problems Problem Type SNOMED Code ICD Code Onset Dates Problem Status W/U Status Risk Notes Problem 899681413 Aftercare following joint replacement surgery (Z47.1) Active confirmed Problem [id number] Primary osteoarthritis of left hip (M16.12) Active confirmed Problem 98066881 Pain in left hip (M25.552) Active confirmed Problem 764642934 Presence of left artificial hip joint (Z96.642) Active confirmed Problem [id number] Status post tota l hip replacement, 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) Active confirmed Encounters Encounter Location Date Provider Diagnosis [facility] [address] [place] [address] 12/04/2023 Nic Russell Aftercare following joint replacement surgery Z47.1 and Presence of left artificial hip joint Z96.642 [place] [address] [place] [address] 12/04/2023 Nic Russell [place] [address] [place] [address] 12/04/2023 Nic Russell Assessments Encounter Date Diagnosis (ICD Code) Assessment Notes Treatment Notes Treatment Clinical Notes Section Notes 12/04/2023 Aftercare following joint replacement surgery (ICD-10 - Z47.1) Status post left total hip arthroplasty 11/29/2022 12/04/2023 Presence of left artificial hip joint (ICD-10 - Z96.642) Status post left total hip arthroplasty 11/29/2022 12/04/2023 Other Discussed treatment options with the patient. Overall, the patient is very well. She is happy that she had the surgery. She has returned to most activities. She will continue to follow up with her PCP regarding the ulcerations that she is getting on her leg. We did discuss possible needs for vascular surgery intervention. Continue ice and anti-inflammator y as needed for pain. Activity modification as needed for pain. Activity as tolerated. All questions and concerns were addressed. The patient was in agreement with the treatment plan. Will plan to see the patient back in approximately 1 year for repeat clinical and radiographic evaluation. Status post left total hip arthroplasty 11/29/2022 Plan Of Treatment Pending Test Test Name Order Date Work Slip Return to Work/ Full Duty 01/13 RSS: HIP LEFT PREOP AP LAT, AP PELVIS [place] [id number] 11/28/2022 RSS: HIP LEFT POSTOP AP X-FIRE LAT, AP P ERIN STANDING 05794 12/19/2022 RSS: HIP LEFT POSTOP AP X-FIRE LAT, AP P ERIN STANDING 05103 01/30/2023 RSS: HIP LEFT POSTOP AP X-FIRE LAT, AP P ERIN STANDING [id number] 06/12/2023 RSS: HIP LEFT POSTOP AP X-FIRE LAT, AP P ERIN STANDING 27392 12/04/2023 RSS POST OP PT/OT - 3X4 12/09/2022 Insurance Providers Payer Name Payer Address Payer Phone Subscriber Number Group Number Insured Name Patient Relationship to Insured Coverage Start Date Coverage End Date Medicaid [employer] [place] [address] [place] [address] [id number] MELANIELATASHA Self - patient is the insured Medical (General) History Medical History History ICD Code Heart problems: Yes High Blood Pressure: Yes Depression: Yes Mental Illness: Yes Anxiety: Yes Drug Allergies: Yes Surgical History Surgery Date(Month/Year) Left total hip replacement 12/02/2022 Left wrist 2010 Lumbar lamenectomy 01/2022 Partial hyserectomy 2006 1999 Lt shoulder rotator cuff 2000 Rt side thoracic outlet 1996 Rt shoulder acromioplasty 1992 Rt shoulder impingement 1991
--- OUTSIDE RECORDS SUMMARY | 2024-07-16 17:29 | XMS_ITS | Encounter Summary ---
Author Organization [facility] Address [facility] [id number] [address] [place] [address] Care Team Providers Care Delivery Department Supervisor Name Role Phone Jean Claude Mason REMITTANCE CLERK-WELDING MACHINE OPERATOR ELECTRON BEAM Primary Care Provider [phone] Encounter Details Date Type Department Care Team (Late st Contact Info) Description 09/27/2023 Telephone [facility] Sign In [address] [place] [phone] Esvin Mauricio APRN-CNP [address] [place] [address] Social History Tobacco Use Types Packs/Day Years [...] got money to buy more. Never True 09/15/2023 Within the past 12 months th e food we bought just didn't last and we didn't have money to get more. Never True 09/15/2023 Purpose - Life Answer Date Recorded Purpose and direction in life Unknown Comments No Sex and Gender Information Value Date Recorded Sex Assigned at Female 12/14/2021 10:39 AM EDT Legal Sex Female 11:34 AM EDT Gender Identity Female 12/14/2021 10:39 AM EDT Sexual Orientation Straight 12/14/2021 10 :39 AM EDT documented as of this encounter Miscellaneous Notes * Telephone Encounter - MAYDA Vicente - 09/27/2023 11:07 AM EDT Cardiac catheterization completed 09/26/2023. Will need a site check. I believe she lives in [facility]. This can be done in the [place] office. Thanks! * Telephone Encounter - Geeta Everett - 09/27/2023 11:07 AM EDT Attempted to contact 2x, received dial tone each time * Telephone Encounter - Madhuri Adamson - 09/27/2023 11:07 AM EDT 10/02 Phone not in service, sending letter. documented in this encounter Plan of Treatment Not on file documented as of this encounter Visit Diagnoses Not on filedocumented in this encounter Care Teams Delivery Department Supervisor Relationship Specialty Start Date End Date Might, MAYDA Shah [address] [place] [address] PCP - General Family Medicine 11/11/21 documented as of this encounter
--- OUTSIDE RECORDS SUMMARY | 2024-07-16 17:30 | XMS_ITS | Encounter Summary ---
Author Organization [facility] Address [id number] [address] [place] [address] Care Team Providers Care Director Trust Name Role Phone Jean Claude Mason RECRUITMENT SPECIALIST-YOUTH DIRECTOR Primary Care Provider [phone] Reason for Visit * Reason Onset Date Comments referral 12/13/2021 Neurology refrer ral faxed. Encounter Details Date Type Department Care Team (Late st Contact Info) Description 12/14[facility]20[facility] [address] [place] [address] Uyen Spears CMA referral (Neurology refrerral faxed. ) Social History Tobacco Use Types Packs/Day Years Used Date Smoking Tobacco: Every Day Cigarettes Smokeless Tobacco: Never Alcohol Use Standard Drinks/Week Comments Not Currently 0 (1 standard drink = 0.6 oz pur e alcohol) occasionally Childcare Answer Date Recorded Childcare Unknown 07/25/2018 Employment Answer Date Recorded Employment Unknown 07/25/2018 Purpose - Life Answer Date Recorded Purpose [...] have Coronavirus / COVID-19? No / Unsure 12/14/2021 10:31 AM EDT documented as of this encounter Miscellaneous Notes * Telephone Encounter - Uyen Spears CMA - 12/14/2021 1:56 PM EDT Faxed neurology referral . Will scan conformation into media. documented in this encounter Plan of Treatment Not on file documented as of this encounter Visit Diagnoses Not on filedocumented in this encounter Care Teams Director Trust Relationship Specialty Start Date End Date Might, Jean Claude Chatman, RECRUITMENT SPECIALIST-YOUTH DIRECTOR [address] [place] [address] PCP - General Family Medicine 11/11/21 documented as of this encounter
--- OUTSIDE RECORDS SUMMARY | 2024-07-16 17:30 | XMS_ITS | Encounter Summary ---
Author Organization [facility] Address [address] [place] [address] Care Team Providers Care Electron Beam Welder Setter Name Role Phone Jean Claude Mason APRN - RN MED SURG Primary Care Provider Encounter Details Date Type Department Care Team (Latest Contact Info) Description 10/20/2021 Transcribe Orders [facility] [address] [place] [address] Radhika Mcarthur MA Brachial neuritis (Primary Dx); Thoracic neuritis; Lumbar radiculopathy Social History Tobacco Use Types Packs/Day Years Used Date Smoking Tobacco: Every Day Cigarettes 0.5 25.4 Started: 02/13/1999 Smokeless Tobacco: Never Alcohol Use Standard Drinks/Week Comments Yes 0 (1 standard drink = 0.6 oz pur e alcohol) social 2 drinks /week Overall Financial Resource Strain (CARDIA) Answe r Date Recorded How hard is it for you to pa y for the very basics like food, housing, medical care, and heating? Patient declined 10/14/2021 PHQ-2 Answer Date Recorded PHQ-9 Total Score 9 10/14/2021 Hunger Vital Sign Answer Date Recorded Within the past 12 months, y ou worried that your food would run out before you got the money to buy more. Patient declined Within the past 12 months, t he food you bought just didn't last and you didn't have money to get more. Patient declined 02/2021 Comments No Sex and Gender Information Value Date Recorded Sex Assigned at Female 06/16/2023 3:36 AM EDT Legal Sex Female 4:44 PM EST Gender Identity Female 06/16/2023 3:36 AM EDT Sexual Orientation Straight 06/16/2023 3: 36 AM EDT documented as of this encounter Plan of Treatment Upcoming Encounters Date Type Department Care Team (Late st Contact Info) Description 12/16/2024 1:00 PM EST Office Visit [facility] [address] [place] [address] Jean Claude Mason APRN - CNP [address] [place] [address] 6 month documented as of this encounter Visit Diagnoses Diagnosis Brachial neuritis- Primary Brachial neuritis or radiculitis nos Thoracic neuritis Thoracic or lumbosacral neuritis or radiculitis, unspecified Lumbar radiculopathy Thoracic or lumbosacral neuritis or radiculitis, unspecified documented in this encounter Additional Health Concerns Infection Onset Date Last Indicated Resolved Time COVID-19 (Rule Out) 04/13/2022 04/13/2022 04/14/19 23 1:26 PM EST documented as of this encounter Care Teams Electron Beam Welder Setter Relationship Specialty Start Date End Date Jean Claude Mason APRN - CNP [address] [place] [address] PCP - General Family Nurse Practitioner 10/14/21 documented as of this encounter
--- OUTSIDE RECORDS SUMMARY | 2024-07-16 17:30 | XMS_ITS | Encounter Summary ---
Author Organization [facility] Address [address] [place] [address] Care Team Providers Care Dental Aide Name Role Phone Jean Claude Mason APRN - PSYCHOLOGIST DEVELOPMENTAL Primary Care Provider Reason for Referral * Imaging (Routine) - Closed Specialty Diagnoses / Procedures Referred By Contac t Referred To Contact Radiology Diagnoses Thoracic radiculitis Procedures MRI THORACIC SPINE WO CONTRAST Allyn Elkins MD [address] [place] [address] Phone: tel: fax: Referral ID Status Reason Start Date Expiration Date Visits Re quested Visits Authorized [id number] Closed 10/20/2021 10/20/2022 1 1 * Imaging (Routine) - Closed Specialty Diagnoses / Procedures Referred By Contac t Referred To Contact Radiology Diagnoses Lumbar radiculopathy Procedures MRI LUMBAR SPINE WO CONTRAST Allyn Elkins MD [address] [place] [address] Phone: tel: fax: Referral ID Status Reason Start Date Expiration Date Visits Re quested Visits Authorized [id number] Closed 10/20/2021 10/20/2022 1 1 * Imaging (Routine) - Closed Specialty Diagnoses / Procedures Referred By Contac t Referred To Contact Radiology Diagnoses Cervical radiculitis Procedures MRI CERVICAL SPINE WO CONTRAST Allyn Elkins MD [address] [place] [address] Phone: tel: fax: Referral ID Status Reason Start Date Expiration Date Visits Re quested Visits Authorized [id number] Closed 10/20/2021 10/20/2022 1 1 Encounter Details Date Type Department Care Team (Latest Contact Info) Description 10/20/2021 Transcribe Orders [facility] [address] [place], [place] [id number] Allyn Elkins MD [address] [place] [address] Cervical radiculitis (Primary Dx); Lumbar radiculopathy; Thoracic radiculitis Social History Tobacco Use Types Packs/Day Years [...] the money to buy more. Patient declined 09 /02/2021 Within the past 12 months, t he [...] Description 12/16/2024 1:00 PM EST Office Visit [facility] [address] [place] [address] Jean Claude Mason APRN - CNP [address] [place] [address] 6 month documented as of this encounter Results * MRI CERVICAL SPINE WO CONTRAST (11/01/2021 3:15 PM EDT) Anatomical Region Laterality Modality C-spine, T-spine, Neck Magnetic Resonance 11/01/2021 3:16 PM EDT Impressions 11/02/2021 9:59 PM EDT 1. Degenerative changes C5-6 with mild spinal canal stenosis. There is mild right and moderate left neural foraminal narrowing. 2. Mild left neural foraminal narrowing at C4-5. 3. Retrolisthesis at C5-6. Narrative 11/02/2021 9:59 PM EDT EXAMINATION: MRI OF THE CERVICAL SPINE WITHOUT CONTRAST 11/01/2021 2:25 pm TECHNIQUE: Multiplanar multisequence MRI of the cervical spine was performed without the administration of intravenous contrast. COMPARISON: 12/29/2020 HISTORY: ORDERING SYSTEM PROVIDED HISTORY: Cervical radiculitis FINDINGS: BONES/ALIGNMENT: There is retrolisthesis at C5-6. Cervical spinal alignment is otherwise maintained. Vertebral body heights are maintained. Degenerative marrow signal changes are noted at C5-6. SPINAL CORD: No abnormal cord signal is seen. SOFT TISSUES: No paraspinal mass identified. C2-C3: There is no significant disc protrusion, spinal canal stenosis or neural foraminal narrowing. C3-C4: There is no significant disc protrusion, spinal canal stenosis or neural foraminal narrowing. C4-C5: No significant spinal canal or right neural foraminal stenosis. Mild left neural foraminal stenosis. C5-C6: Posterior disc osteophyte complex and ligamentum flavum hypertrophy with mild spinal canal stenosis. Mild right and moderate left neural foraminal narrowing. C6-C7: There is no significant disc protrusion, spinal canal stenosis or neural foraminal narrowing. C7-T1: There is no significant disc protrusion, spinal canal stenosis or neural foraminal narrowing. Procedure Note Nancie Odom MD - 11/02/2021 EXAMINATION: MRI OF THE CERVICAL SPINE WITHOUT CONTRAST 11/01/2021 2:25 pm TECHNIQUE: Multiplanar multisequence MRI of the cervical spine was performed withoutthe administration of intravenous contrast. COMPARISON: 12/29/2020 HISTORY: ORDERING SYSTEM PROVIDED HISTORY: Cervical radiculitis FINDINGS: BONES/ALIGNMENT: There is retrolisthesis at C5-6. Cervical spinalalignment is otherwise maintained. Vertebral body heights are maintained. Degenerative marrow signal changes are noted at C5-6. SPINAL CORD: No abnormal cord signal is seen. SOFT TISSUES: No paraspinal mass identified. C2-C3: There is no significant disc protrusion, spinal canal stenosis or neural foraminal narrowing. C3-C4: There is no significant disc protrusion, spinal canal stenosis or neural foraminal narrowing. C4-C5: No significant spinal canal or right neural foraminal stenosis.Mild left neural foraminal stenosis. C5-C6: Posterior disc osteophyte complex and ligamentum flavumhypertrophy with mild spinal canal stenosis. Mild right and moderate left neural foraminal narrowing. C6-C7: There is no significant disc protrusion, spinal canal stenosis or neural foraminal narrowing. C7-T1: There is no significant disc protrusion, spinal canal stenosis or neural foraminal narrowing. IMPRESSION: 1. Degenerative changes C5-6 with mild spinal canal stenosis. There ismild right and moderate left neural foraminal narrowing. 2. Mild left neural foraminal narrowing at C4-5. 3. Retrolisthesis at C5-6. Allyn Elkins MD IMG MRI ORDERABLES Final Result * MRI THORACIC SPINE WO CONTRAST (11/01/2021 3:15 PM EDT) Anatomical Region Laterality Modality C-spine, T-spine, L-spine, Chest Magnetic Resonance 11/01/2021 3:16 PM EDT Impressions 11/02/2021 10:04 PM EDT 1. No acute abnormality. 2. Multilevel degenerative change with mild spinal canal narrowing at T6-7, T7-8, and T8-9. Narrative 11/02/2021 10:04 PM EDT EXAMINATION: MRI OF THE THORACIC SPINE WITHOUT CONTRAST 11/01/2021 2:39 pm TECHNIQUE: Multiplanar multisequence MRI of the thoracic spine was performed without the administration of intravenous contrast. COMPARISON: None. HISTORY: ORDERING SYSTEM PROVIDED HISTORY: Thoracic radiculitis FINDINGS: BONES/ALIGNMENT: There is normal alignment of the spine. The vertebral body heights are maintained. The bone marrow signal appears unremarkable. SPINAL CORD: No abnormal cord signal is seen. SOFT TISSUES: No paraspinal mass identified. DEGENERATIVE CHANGES: Left paracentral disc extrusion at T6-7 with mild spinal canal stenosis. Right paracentral disc extrusion with minimal spinal canal narrowing at T7-8. Right paracentral disc protrusion at T8-9 with mild spinal canal stenosis. Mild bilateral neural foraminal narrowing at T9-10. Procedure Note Nancie Odom MD - 11/02/2021 EXAMINATION: MRI OF THE THORACIC SPINE WITHOUT CONTRAST 11/01/2021 2:39 pm TECHNIQUE: Multiplanar multisequence MRI of the thoracic spine was performed withoutthe administration of intravenous contrast. COMPARISON: None. HISTORY: ORDERING SYSTEM PROVIDED HISTORY: Thoracic radiculitis FINDINGS: BONES/ALIGNMENT: There is normal alignment of the spine. The vertebralbody heights are maintained. The bone marrow signal appears unremarkable. SPINAL CORD: No abnormal cord signal is seen. SOFT TISSUES: No paraspinal mass identified. DEGENERATIVE CHANGES: Left paracentral disc extrusion at T6-7 with mild spinal canal stenosis. Right paracentral disc extrusion with minimalspinal canal narrowing at T7-8. Right paracentral disc protrusion at T8-9 withmild spinal canal stenosis. Mild bilateral neural foraminal narrowing atT9-10. IMPRESSION: 1. No acute abnormality. 2. Multilevel degenerative change with mild spinal canal narrowing atT6-7, T7-8, and T8-9. Allyn Elkins MD IMG MRI ORDERABLES Final Result * MRI LUMBAR SPINE WO CONTRAST (11/01/2021 2:30 PM EDT) Anatomical Region Laterality Modality T-spine, L-spine, Pelvis Magneti c Resonance 11/01/2021 3:16 PM EDT Impressions 11/02/2021 9:54 PM EDT At L3-L4, grade 1 anterolisthesis, mild canal stenosis and moderate left neural foraminal narrowing. Left extraforaminal disc protrusion contacts exiting left L3 nerve root. At L5-S1, left paracentral disc protrusion impinges on left S1 nerve root. RECOMMENDATIONS: Unavailable Narrative 11/02/2021 9:54 PM EDT EXAMINATION: MRI OF THE LUMBAR SPINE WITHOUT CONTRAST, 11/01/2021 2:38 pm TECHNIQUE: Multiplanar multisequence MRI of the lumbar spine was performed without the administration of intravenous contrast. COMPARISON: None. HISTORY: ORDERING SYSTEM PROVIDED HISTORY: Lumbar radiculopathy FINDINGS: BONES/ALIGNMENT: There is normal alignment of the spine. The vertebral body heights are maintained. The bone marrow signal appears unremarkable. SPINAL CORD: The conus terminates normally. SOFT TISSUES: No paraspinal mass identified. L1-L2: There is no significant disc herniation, spinal canal stenosis or neural foraminal narrowing. L2-L3: 2 mm disc bulging effaces the anterior thecal sac. Mild bilateral facet arthropathy. Mild canal stenosis and mild bilateral neural foraminal narrowing. L3-L4: Grade 1 anterolisthesis with disc bulging. 2 mm left extraforaminal disc contacts exiting left L3 root. Bilateral facet arthropathy. Mild canal stenosis and moderate left neural foraminal narrowing. L4-L5: Mild loss of disc signal. 2 mm disc bulging effaces the anterior thecal sac. Mild bilateral facet arthropathy. Mild bilateral neural foraminal narrowing. L5-S1: Disc bulging with 3 mm left paracentral disc protrusion effaces the anterior thecal sac. The protruded disc mildly narrows left subarticular recess impinging on descending left S1 nerve root. Mild bilateral facet arthropathy. No canal or foraminal stenosis Procedure Note Candace Medina MD - 11/02/2021 EXAMINATION: MRI OF THE LUMBAR SPINE WITHOUT CONTRAST, 11/01/2021 2:38 pm TECHNIQUE: Multiplanar multisequence MRI of the lumbar spine was performed withoutthe administration of intravenous contrast. COMPARISON: None. HISTORY: ORDERING SYSTEM PROVIDED HISTORY: Lumbar radiculopathy FINDINGS: BONES/ALIGNMENT: There is normal alignment of the spine. The vertebralbody heights are maintained. The bone marrow signal appears unremarkable. SPINAL CORD: The conus terminates normally. SOFT TISSUES: No paraspinal mass identified. L1-L2: There is no significant disc herniation, spinal canal stenosis or neural foraminal narrowing. L2-L3: 2 mm disc bulging effaces the anterior thecal sac. Mildbilateral facet arthropathy. Mild canal stenosis and mild bilateral neuralforaminal narrowing. L3-L4: Grade 1 anterolisthesis with disc bulging. 2 mm leftextraforaminal disc contacts exiting left L3 root. Bilateral facet arthropathy. Mildcanal stenosis and moderate left neural foraminal narrowing. L4-L5: Mild loss of disc signal. 2 mm disc bulging effaces the anterior thecal sac. Mild bilateral facet arthropathy. Mild bilateral neural foraminal narrowing. L5-S1: Disc bulging with 3 mm left paracentral disc protrusion effacesthe anterior thecal sac. The protruded disc mildly narrows leftsubarticular recess impinging on descending left S1 nerve root. Mild bilateral facet arthropathy. No canal or foraminal stenosis IMPRESSION: At L3-L4, grade 1 anterolisthesis, mild canal stenosis and moderate left neural foraminal narrowing. Left extraforaminal disc protrusioncontacts exiting left L3 nerve root. At L5-S1, left paracentral disc protrusion impinges on left S1 nerveroot. RECOMMENDATIONS: Unavailable [facility] MRI ORDERABLES Final Result documented in this encounter Visit Diagnoses Diagnosis Cervical radiculitis- Primary Brachial neuritis or radiculitis nos Lumbar radiculopathy Thoracic or lumbosacral neuritis or radiculitis, unspecified Thoracic radiculitis Thoracic or lumbosacral neuritis or radiculitis, unspecified Cervical radiculitis Brachial neuritis or radiculitis nos Lumbar radiculopathy Thoracic or lumbosacral neuritis or radiculitis, unspecified Thoracic radiculitis Thoracic or lumbosacral neuritis or radiculitis, unspecified documented in this encounter Additional Health Concerns Infection Onset Date Last Indicated Resolved Time COVID-19 (Rule Out) 04/13/2022 04/13/2022 04/14/19 23 1:26 PM EST documented as of this encounter Care Teams Dental Aide Relationship Specialty Start Date End Date Jean Claude Mason, CHARGE ACCOUNT AUTHORIZER - PSYCHOLOGIST DEVELOPMENTAL [address] [place] [address] PCP - General Family Nurse Practitioner 10/14/21 documented as of this encounter
--- OUTSIDE RECORDS SUMMARY | 2024-07-16 17:30 | XMS_ITS | Encounter Summary ---
Author Organization [facility] Address [address] [place] [address] Care Team Providers Care Director Corporate Security Name Role Phone Jean Claude Mason APRN - CARDIOTHORACIC ANESTHESIA TECHNICIAN Primary Care Provider Reason for Referral * Imaging (Routine) - Open Specialty Diagnoses / Procedures Referred By Contac t Referred To Contact Radiology Diagnoses Hepatic cirrhosis, unspecified hepatic cirrhosis type, unspecified whether ascites present (HCC) HTN (hypertension), malignant Portal hypertension (HCC) Hepatic encephalopathy (HCC) Edema of lower extremity Immunity status testing Abdominal pain, unspecified abdominal location Procedures US GUIDED PARACENTESIS Misha Roman MD [address] [place] [address] Phone: tel: fax: Referral ID Status Reason Start Date Expiration Date Visits Re quested Visits Authorized [id number] Open 01/16/2024 01/15/2025 1 1 Encounter Details Date Type Department Care Team (Latest Contact Info) Description 01/16/2024 Transcribe Orders [facility] [address] [place] [address] Misha Roman MD [address] [place] [address] Hepatic cirrhosis, unspecified hepatic cirrhosis type, unspecified whether ascites present (HCC) (Primary Dx); HTN (hypertension), malignant; Portal hypertension (HCC); Hepatic encephalopathy (HCC); Edema of lower extremity; Immunity status testing; Abdominal pain, unspecified abdominal location Social History Tobacco Use Types Packs/Day Years Used Date Smoking Tobacco: Every Day Cigarettes 0.5 40.4 Started: 02/14/1984 Smokeless Tobacco: Never Comments:Quit for 3 years wh en i found out i was in august 1998 Alcohol Use Standard Drinks/Week Comments Not Currently 0 (1 standard drink = 0.6 oz pure alcohol) Recently quit because of health issues Overall Financial Resource Strain (CARDIA) Answe r Date Recorded How hard is it for you to pa y for the very basics like food, housing, medical care, and heating? Somewhat hard 11/26/2023 PHQ-2 Answer Date Recorded PHQ-9 Total Score 0 11/28/2023 Hunger Vital Sign Answer Date Recorded Within the past 12 months, y ou worried that your food would run out before you got the money to buy more. Sometimes true Within the past 12 months, t he food you bought just didn't last and you didn't have money to get more. Never true PRAPARE - Transportation Answer Date Re corded Lack of Transportation (Medical) Not on file 11/26/2023 In the past 12 months, has l ack of transportation kept you from meetings, work, or from getting things needed for daily living? Yes 11/26/2023 Housing Stability Vital Sign Answer Abdi e Recorded Unable to Pay for Housing in the Last Year Not o n file 12/27/2022 Number of Places Lived in the Last Year Not on f ile 12/27/2022 In the last 12 months, was t here a time when you did not have a steady place to sleep or slept in a correction (including now)? Patient refused 12/27/2022 Housing Stability Vital Sign Answer Abdi e Recorded Unable to Pay for Housing in the Last Year Not o n file 11/26/2023 Number of Times Moved in the Last Year Not on fi le 11/26/2023 At any time in the past 12 m [facility], were you homeless or living in a correction (including now)? No 11/26/2023 Food Insecurity Answer Date Recorded Within the past 12 months, y ou worried that your food would run out before you got the money to buy more. 2 11/26/2023 Within the past 12 months, t he food you bought just didn't last and you didn't have money to get more. 1 11/26/2023 Interpersonal Safety Domain Source: IP Abuse Scr [...] Description 12/16/2024 1:00 PM EST Office Visit [facility] [address] [place] [address] Jean Claude Mason, PARTY PLAN SALES HOST/HOSTESS - CARDIOTHORACIC ANESTHESIA TECHNICIAN [address] [place] [address] 6 month Scheduled Orders Name Type Priority Associated Diagnoses Orde r Schedule US GUIDED PARACENTESIS Imaging Routine Hepatic cirrhosis, unspecified hepatic cirrhosis type, unspecified whether ascites present (HCC) HTN (hypertension), malignant Portal hypertension (HCC) Hepatic encephalopathy (HCC) Edema of lower extremity Immunity status testing Abdominal pain, unspecified abdominal location Expected: 01/16/2024, Expires: 01/15/2025 documented as of this encounter Visit Diagnoses Diagnosis Hepatic cirrhosis, unspecified hepatic cirrhosis type, unspecified whether ascites present (HCC)- Primary HTN (hypertension), malignant Essential hypertension, malignant Portal hypertension (HCC) Portal hypertension Hepatic encephalopathy (HCC) Hepatic encephalopathy Edema of lower extremity Edema Immunity status testing Antibody response examination Abdominal pain, unspecified abdominal location documented in this encounter Care Teams Director Corporate Security Relationship Specialty Start Date End Date Might, Jean Claude Chatman, PARTY PLAN SALES HOST/HOSTESS - CARDIOTHORACIC ANESTHESIA TECHNICIAN [address] [place] [address] PCP - General Family Nurse Practitioner 10/14/21 documented as of this encounter
--- OUTSIDE RECORDS SUMMARY | 2024-07-16 17:30 | XMS_ITS | Encounter Summary ---
Author Organization [facility] Address [address] [place] [address] Care Team Providers Care Test Engineer Name Role Phone Jean Claude Mason Compa VIEYRAN - MANGLE ROLLER Primary Care Provider Encounter Details Date Type Department Care Team (Latest Contact Info) Description 10/20/2021 Transcribe Orders [facility] [address] [place] [address] Allyn Elkins MD [address] [place] [address] Cervical radiculitis (Primary Dx); Lumbar radiculopathy Social History Tobacco Use Types [...] Description 12/16/2024 1:00 PM EST Office Visit [facility] [address] [place] [address] Jean Claude Mason APRN - MANGLE ROLLER [address] [place] [address] 6 month documented as of this encounter Visit Diagnoses Diagnosis Cervical radiculitis- Primary Brachial neuritis or radiculitis nos Lumbar radiculopathy Thoracic or lumbosacral neuritis or radiculitis, unspecified documented in this encounter Additional Health Concerns Infection Onset Date Last Indicated Resolved Time COVID-19 (Rule Out) 04/13/2022 04/13/2022 04/14/19 23 1:26 PM EST documented as of this encounter Care Teams Test Engineer Relationship Specialty Start Date End Date Jean Claude Mason APRN - MANGLE ROLLER [address] [place] [address] PCP - General Family Nurse Practitioner 10/14/21 documented as of this encounter
--- OUTSIDE RECORDS SUMMARY | 2024-07-16 17:30 | XMS_ITS | Encounter Summary ---
Author Organization Philippe Goins [facility] Address [address] [place] [address] Care Team Providers Care Resistor Testing Machine Operator Name Role Phone Jean Claude Mason Compa VIEYRAN - MANAGER TAX Primary Care Provider Encounter Details Date Type Department Care Team (Late st Contact Info) Description 01/16/2024 Transcribe Orders [facility] [address] [place] [address] Rudy Roque MD [address] [place] [address] Social History Tobacco Use Types Packs/Day Years [...] place to sleep or slept in a usp (including now)? Patient refused 12/27/2022 Housing Stability Vital Sign Answer Abdi e Recorded Unable to Pay for Housing in the Last Year Not o n file 11/26/2023 Number of Times Moved in the Last Year Not on fi le 11/26/2023 At any time in the past 12 m [facility], were you homeless or living in a usp (including now)? No 11/26/2023 Food Insecurity Answer [...] Description 12/16/2024 1:00 PM EST Office Visit [facility] [address] [place] [address] Jean Claude Mason APRN - CNP [address] [place] [address] 6 month documented as of this encounter Visit Diagnoses Not on filedocumented in this encounter Care Teams Resistor Testing Machine Operator Relationship Specialty Start Date End Date Jean Claude Mason APRN - FRANSISCO [address] [place] [address] PCP - General Family Nurse Practitioner 10/14/21 documented as of this encounter
--- OUTSIDE RECORDS SUMMARY | 2024-07-16 17:31 | XMS_ITS | Encounter Summary ---
Author Organization [employer] Address [id number] [address] [place] [address] Care Team Providers Care Furniture Sprayer Name Role Phone Jean Claude Mason EDUCATIONAL FUNDRAISING DIRECTOR-GREEN MATERIAL VALUE ADDED ASSESSOR Primary Care Provider [phone] Reason for Visit * Reason Comments Med Refill Encounter Details Date Type Department Care Team (Late st Contact Info) Description 10/20/2019 Refill [facility] [address] [facility] [address] [place] [address] Gwen Maya, EDUCATIONAL FUNDRAISING DIRECTOR-GREEN MATERIAL VALUE ADDED ASSESSOR [address] [place] [address] Med Refill Social History Tobacco Use Types Packs/Day Years Used Date Smoking Tobacco: Every Day Cigarettes Smokeless Tobacco: Never Alcohol Use Standard Drinks/Week Comments Yes 0 (1 standard drink = 0.6 oz pur e alcohol) OCCASSIONALLY Childcare Answer Date Recorded Childcare Unknown 07/25/2018 Employment Answer Date Recorded Employment Unknown 07/25/2018 Comments No Sex and Gender Information Value [...] have Coronavirus / COVID-19? No / Unsure 10/04/2019 1:18 PM EDT documented as of this encounter Miscellaneous Notes * Telephone Encounter - Lisa Hira - 10/20/2019 8:18 AM EDT T/C to pt to schedule f/u appt. No answer and no v/m set up. * Telephone Encounter - Lisa Hira - 10/20/2019 8:18 AM EDT T/C to pt to schedule f/u appt. No answer and no v/m set up. pt to schedule f/u appt. Letter mailedto pt requesting she call for an appt. documented in this encounter Plan of Treatment Not on file documented as of this encounter Visit Diagnoses Not on filedocumented in this encounter Care Teams Furniture Sprayer Relationship Specialty Start Date End Date Isabella, Jean Claude Chatman, EDUCATIONAL FUNDRAISING DIRECTOR-GREEN MATERIAL VALUE ADDED ASSESSOR [address] [place] [id number] PCP - General Family Medicine 11/11/21 documented as of this encounter
--- OUTSIDE RECORDS SUMMARY | 2024-07-16 17:31 | XMS_ITS | Clinical Summary ---
Author Organization Philippe Goins [facility] Address [address] [place] [address] Care Team Providers Care Mechanic Assistant Name Role Phone Jean Claude Mason APRN - COFFEE SAMPLER Primary Care Provider Allergies Active Allergy Reactions Criticality Noted Date Comments Amoxicillin-Pot Clavulanate 10/16/19 15 Morphine 10/15/2014 Metoclopramide 10/15/2014 Medications Multiple Vitamins-Minerals (THERAPEUTIC MULTIVITAMIN-HUMAN PERFORMANCE CONSULTANT ALS) tablet Take 1 tablet by mouth daily Active buprenorphine-nalo xone (SUBOXONE) 8-2 MG FILM SL film 4 Active nitroGLYCERIN (NITROSTAT) 0.[address] 1 tablet under the tongue every 5 minutes as needed 4 Active aspirin 81 MG EC tablet Take 1 tablet by mouth daily Active ARIPiprazole (ABILIFY) 2 MG tablet 4 Active hydrOXYzine pamoate (VISTARIL) 50 MG capsule 4 Active ranolazine (RANEXA) 500 MG extended release tablet 4 Active polyethylene glycol (GLYCOLAX) 17 GM/SCOOP powder 4 Active XIFAXAN 550 MG tablet 4 Active traZODone (DESYREL) 50 MG tablet 4 Active busPIRone (BUSPAR) 10 MG tablet 4 Active sertraline (ZOLOFT) 100 MG tablet 4 Active amLODIPine (NORVASC) 10 MG tablet 5 Active levothyroxine (SYNTHROID) 25 MCG tabletIndications: Subclinical hypothyroidism Take 1 tablet by mouth daily 90 tablet 1 5 Active naloxone 4 MG/0.1ML LIQD nasal spray 5 Active scopolamine (TRANSDERM-SCOP) transdermal patch 5 Active cetirizine (ZYRTEC) 5 MG tablet Take 1 tablet by mouth daily 90 tablet 1 5 Active furosemide (LASIX) 20 MG tablet 5 Active ondansetron (ZOFRAN) 8 MG tablet 5 Active spironolactone (ALDACTONE) 50 MG tablet 5 Active tiZANidine (ZANAFLEX) 4 MG tabletIndications: Spinal stenosis of lumbosacral region Take 1 tablet by mouth 2 times daily as needed (spasm) 60 tablet 2 5 Active albuterol sulfate HFA (VENTOLIN HFA) 108 (90 Base) MCG/ACT inhaler Inhale 2 puffs into the lungs 4 times daily as needed for Wheezing INHALE TWO PUFFS BY MOUTH FOUR TIMES A DAY NEEDED FOR WHEEZING 18 g 2 5 Active gabapentin (NEURONTIN) 600 MG tabletIndications: Spinal stenosis of lumbosacral region Take 1 tablet by mouth 3 times daily for 30 days. DO NOT FILL UNTIL 06/22/2024 90 tablet 5 025 Active Dextromethorphan-g uaiFENesin (MUCINEX DM MAXIMUM STRENGTH) 60-1200 MG [id number]:Vi ral upper respiratory tract infection with cough Take 1 tablet by mouth every 12 hours for 7 days 28 tablet 5 025 Active fluticasone (FLOVENT HFA) 44 MCG/ACT inhalerIndications :Viral upper respiratory tract infection with cough Inhale 2 puffs into the lungs 2 times daily for 7 days 1 each 5 025 Active gabapentin (NEURONTIN) 600 MG tabletIndications: Spinal stenosis of lumbosacral region Take 1 tablet by mouth 3 times daily for 90 days. 90 tablet 2 5 025 Discontin ued(REORD ER) Active Problems Problem Noted Date Diagnosed Date H/O cardiac radiofrequency ablation 09/15/2023 Mixed hyperlipidemia 09/15/2023 Tobacco abuse 09/15/2023 Unstable angina pectoris 09/15/2023 Lumbar spondylosis 02/09/2022 Polyp of colon 12/22/2021 Internal hemorrhoids 12/22/2021 Iron deficiency anemia due to chronic blood loss 12/13/2021 Thrombocytopenia 11/15/2021 Portal hypertension 11/15/2021 Splenomegaly 11/15/2021 Liver cirrhosis 11/15/2021 Nicotine dependence, cigarettes, uncomplicated 0 10/14/2021 Hypertensive heart disease without heart failure 10/14/2021 Primary hypertension 10/14/2021 Chronic bilateral low back pain without sciatica 10/14/2021 Resolved Problems Problem Noted Date Diagnosed Date Resolved Date Acute bronchitis with COPD 10/20/2023 0 03/12/2024 SVT (supraventricular tachycardia) 10/14/2021 11/21/2022 Encounters Date Type Department Care Team Description 07/14/2024 7:40 PM EDT Telemedicine On Demand [facility] [address] [place] [address] Rosemary Taylor APRN - CNP Viral upper respiratory tract infection with cough (Primary Dx) 06/19/2024 Refill [facility] [address] [place] [address] Jean Claude Mason APRN - FRANSISCO Medication Refill 06/18/2024 Results Follow-Up [facility] [address] [place] [address] Jean Claude Mason APRN - COFFEE SAMPLER Results 06/15/2024 Refill [facility] [address] [place] [address] Jean Claude Mason, CLOTH PATTERN MAKER - COFFEE SAMPLER Medication Refill 06/14/2024 1:49 PM EDT - 06/16/2024 11:59 PM EDT Hospital Encounter [address] [address] Acute lateral meniscal injury of right knee, initial encounter Discharge Disposition: Home or Self Care 06/14/2024 1:00 PM EDT Office Visit [facility] [address] [place] [phone] Jean Claude Mason, CLOTH PATTERN MAKER - COFFEE SAMPLER Primary hypertension (Primary Dx); Acute lateral meniscal injury of right knee, initial encounter; Spinal stenosis of lumbosacral region; Diabetes mellitus screening 05/20/2024 Refill [facility] [address] [place] [phone] Jean Claude Mason, CLOTH PATTERN MAKER - COFFEE SAMPLER Medication Refill 05/16/2024 Refill [facility] [address] [place] [phone] Jean Claude Mason, CLOTH PATTERN MAKER - COFFEE SAMPLER Medication Refill 05/14/2024 10:47 AM EDT - 05/14/2024 11:59 PM EDT Hospital Encounter [address] [address] Discharge Disposition: Home or Self Care 05/07/2024 Abstract [facility] [address] [place] [phone] Jean Claude Mason, CLOTH PATTERN MAKER - COFFEE SAMPLER 05/07/2024 Abstract [facility] [address] [place] [phone] Jean Claude Mason, CLOTH PATTERN MAKER - COFFEE SAMPLER 04/25/2024 Orders Only [address] [address] Misha Roman MD 04/21/2024 Orders Only [facility] Admitting [address] [place] [address] Misha Roman MD from Last 3 Months Immunizations Immunization Administration Dates Next Due COVID-19, MODERNA BLUE borde r, Primary or Immunocompromised, (age 12y+), IM, 100 mcg/0.5mL 03/05/2021,06/11/2020,05/14/2020 Influenza Virus Vaccine 01/12/2022 Influenza, FLUCELVAX, (age 6 mo+) IM, Trivalent PF, 0.5mL 11/28/2023 Pneumococcal, PCV20, PREVNAR 20, (age 6w+), IM, 0.5mL 11/28/2023 TDaP, ADACEL (age 10y-64y), BOOSTRIX (age 10y+), IM, 0.5mL 07/12/2023,10/04/2019,10/15/2014 Zoster Recombinant (Shingrix) 01/21/2022, 022 Family History Medical History Relation Name Comments Alcohol Abuse Father Yaya Cohn Arthritis Father Yaya Cohn Cancer Father Yaya Cohn Diabetes Father Yaya Cohn Heart Attack Father Yaya Cohn High Blood Pressure Father Yaya Cohn Liver Cancer Father Yaya Cohn Arthritis Mother Jesenia Cohn Atrial Fibrillation Mother Jesenia oChn Cancer Mother Jesenia Cohn High Blood Pressure Mother Jesenia Cohn Stroke Paternal Grandmother Judith Cancer Paternal Uncle Arvil Cirrhosis Paternal Uncle Arvil Prostate Cancer Paternal Uncle Arvil Anemia Sister 1 Susan Clem Arthritis Sister 1 Susan Clem Alcohol Abuse Sister 2 Ashley Cohn Anemia Sister 2 Ashley Cohn Arthritis Sister 2 Ashley [place] Cancer Sister 2 Ashleyjosiane Cohn High Blood Pressure Sister 2 Ashleyjosiane Cohn Arthritis Sister 3 Aliyah Lakshmi Asthma Sister 3 Aliyah Lakshmi Cancer Sister 3 Aliyah Lakshmi Relation Name Status Comments Father Yaya Cohn Mother Jesenia Cohn Alive Paternal Grandmother Judith Paternal Uncle Arvil Sister 1 Susan Clem Sister 2 Ashley Lalit Sister 3 Aliyah Lakshmi Social History Tobacco Use Types Packs/Day Years Used Date Smoking Tobacco: Every Day Cigarettes 0.5 40.4 Started: 02/14/1984 Smokeless Tobacco: Never Tobacco Cessation:Ready to Q uit: No; Counseling Given: Yes Comments:Quit for 3 years when i found out i was in august 1998 Alcohol Use Standard Drinks/Week Comments Not Currently 0 (1 standard drink = 0.6 oz pure alcohol) Recently quit because of health issues [facility] Utilities Answer Date Recorded In the past [...] place to sleep or slept in a half-way (including now)? Patient refused 12/27/2022 Housing Stability [...] any time in the past 12 m [facility], were you homeless or living in a half-way (including now)? No 03/09/2024 Food Insecurity Answer [...] Orientation Straight 06/16/2023 3: 36 AM EDT Last Filed Vital Signs Vital Sign Reading Time Taken Comments Blood Pressure 110/70 06/14/2024 1:02 PM EDT Pulse 69 06/14/2024 1:02 PM EDT Temperature 36.8 C (98.2 F) 06/14/2024 1:02 PM EDT Respiratory Rate 18 06/14/2024 1:02 PM EDT Oxygen Saturation 96% 06/14/2024 1:02 PM EDT Inhaled Oxygen Concentration - - Weight 77.7 kg (171 lb 6.4 oz) 06/14/2024 1:02 P M EDT Height 160 cm (5' 3 ) 07/17/2023 8:41 AM EDT Body Mass Index 30.36 07/17/2023 8:41 AM EDT Plan of Treatment Upcoming Encounters Date Type Department Care Team (Late st Contact Info) Description 12/16/2024 1:00 PM EST Office Visit [facility] [place] [address] [place] [address] Jean Claude Mason, CLOTH PATTERN MAKER - COFFEE SAMPLER [address] [place] [address] 6 month Health Maintenance Due Date Last Done Comments Hepatitis A vaccine (1 of 2 - Risk 2-dose series) 1985 FIT/FOBT: Average risk 07/16/2011 Fecal-DNA (Cologuard): Average risk 07/16/2011 Sigmoidoscopy/CT colonography 07/16/2011 COVID-19 Vaccine ( season) 2024 01/12/2022, 03/05/2021, 06/11/2020, Additional history exists Postponed from 10/15/2023 (Patient Refused) HIV screen 11/27/2024 Postponed from 1981 (Patient Refused) Depression Monitoring 03/09/2025 03/09/2024, 025 Hepatitis B vaccine (1 of 3 - 19+ 3-dose series) 03/12/2025 Postponed from 1985 (Patient Refused) Lung Cancer Screening &/or Counseling 04/08/2025 04/08/2024 A1C test (Diabetic or Prediabetic) 06/14/2025 06/14/2024 Breast cancer screen 11/29/2025 11/30/2023, 11/06/19 22 Colonoscopy 12/22/2026 12/22/2021, 12/22/2021 Colorectal Cancer Screen 12/22/2026 Lipids 11/23/2028 11/24/2023, 1004/2022, 10/21/2021 DTaP/Tdap/Td vaccine (4 - Td or Tdap) 07/11/2033 07/12/2023, 10/04/2019, 10/15/2014 Shingles vaccine Completed 01/21/2022, 10/19/2021 Flu vaccine Completed 11/28/2023, 01/12/2022 Pneumococcal 0-49 years Vaccine Discontinued 11/28/2023 Pneumococcal 50+ years Vaccine Completed 11/28/2023 Depression Screen Discontinued 03/09/2024, 03/09/2024 Hepatitis C screen Completed 05/14/2024, 0 05/14/2024, 12/07/2021 Diabetes screen Discontinued 06/14/2024 Hib vaccine Aged Out No longer eligi ble based on patient's age to complete this topic Meningococcal (ACWY) vaccine Aged Out No longer eligible based on patient's age to complete this topic Meningococcal B vaccine Aged Out No l onger eligible based on patient's age to complete this topic Polio vaccine Aged Out No longer elig ible based on patient's age to complete this topic Procedures Procedure Name Priority Date/Time Associated Diagnosis Comments XR KNEE RIGHT (3 VIEWS) Routine 06/14/2024 2:31 PM EDT Acute lateral meniscal injury of right knee, initial encounter POCT GLYCOSYLATED HEMOGLOBIN (HGB A1C) Routine 06/14/2024 1:41 PM EDT Diabetes mellitus screening VITAMIN D 25 HYDROXY Routine 05/14/2024 10:48 AM EDT PROTIME-INR Routine 05/14/2024 10:48 AM EDT HEPATITIS C RNA, QUANTITATIVE, PCR Routine 05/14/2024 10:48 AM EDT COMPREHENSIVE METABOLIC PANEL Routine 05/14/2024 10:48 AM EDT CBC WITH AUTO DIFFERENTIAL Routine 05/14/2024 10:48 AM EDT HEPATITIS C ANTIBODY Routine 05/14/2024 10:[address] LUNG SCREENING (INITIAL/ANNUAL) Routine 04/08/2024 6:10 PM EST Personal history of tobacco use KELSY LAVERN DIGITAL SCREEN BILATERAL Routine 11/30/2023 1:12 PM EDT Other screening mammogram LIPID PANEL Routine 11/24/2023 4:44 PM EDT Primary hypertension COLONOSCOPY PROCEDURE Routine 12/22/2021 2:13 PM EST from Last 3 Months or Most Recently Relevant to Health Maintenance Results * XR KNEE RIGHT (3 VIEWS) (06/14/2024 2:31 PM EDT) Anatomical Region Laterality Modality Thigh, Knee, Leg Computed Radiog neri 06/17/2024 1:25 PM EDT Impressions 06/17/2024 1:25 PM EDT No acute abnormality involving the right knee. Narrative 06/17/2024 1:25 PM EDT EXAMINATION: THREE XRAY VIEWS OF THE RIGHT KNEE 06/14/2024 2:31 pm COMPARISON: None. HISTORY: ORDERING SYSTEM PROVIDED HISTORY: Acute lateral meniscal injury of right knee, initial encounter TECHNOLOGIST PROVIDED HISTORY: pain FINDINGS: The bone mineralization is within normal limits. The joint spaces appear unremarkable. No acute fractures or dislocations are seen. There is no soft tissue swelling. No bony erosions are seen. Procedure Note Moreno Griffiths MD - 06/17/2024 EXAMINATION: THREE XRAY VIEWS OF THE RIGHT KNEE 06/14/2024 2:31 pm COMPARISON: None. HISTORY: ORDERING SYSTEM PROVIDED HISTORY: Acute lateral meniscal injury of right knee, initial encounter TECHNOLOGIST PROVIDED HISTORY: pain FINDINGS: The bone mineralization is within normal limits. The joint spacesappear unremarkable. No acute fractures or dislocations are seen. There is nosoft tissue swelling. No bony erosions are seen. IMPRESSION: No acute abnormality involving the right knee. us Jean Claude Mason APRN FRANSISCO [facility] DI[facility] IMAGING ORDERABLES Final Result * POCT glycosylated hemoglobin (Hb A1C) (06/14/2024 1:41 PM EDT) Hemoglobin A1C 6.1 % BLOOD SPECIMEN / Unknown 06/14/2024 1:41 PM EDT us Jean Claude Mason APRN - COFFEE SAMPLER POINT OF CARE TEST ORDE RABLES Final Result * (ABNORMAL) CBC with Auto Differential (05/14/2024 10:48 AM EDT) WBC 5.2 3.5 - 11.3 k/uL 05/14/2024 10:48 AM EDT [facility] RBC 5.08 3.95 - 5.11 m/uL 05/14/2024 10:48 AM EDT [facility] Hemoglobin 14.8 11.9 - 15.1 g/dL 05/14/2024 10:48 AM EDT [facility] Hematocrit 43.5 36.3 - 47.1 % 05/14/2024 10:48 AM [facility] MCV 85.6 82.6 - 102.9 fL 05/14/2024 10:48 AM [facility] MCH 29.1 25.2 - 33.5 pg 05/14/2024 10:48 AM [facility] MCHC 34.0 28.4 - 34.8 g/dL 05/14/2024 10:48 AM [facility] RDW 13.9 11.8 - 14.4 % 05/14/2024 10:48 AM [facility] Platelets See Reflexed IPF Result 138 - 453 k/uL 05/14/2024 10:48 AM [facility] Platelet, Fluorescence 137(L) 138 - 453 k/uL 05/14/2024 10:48 AM [facility] Platelet, Immature Fraction 0.9(L) 1.1 - 10.3 % 05/14/2024 10:48 AM [facility] NRBC Automated 0.0 0.0 per 100 WBC 05/14/2024 10:48 AM [facility] Neutrophils % 52 36 - 65 % 05/14/2024 10:48 AM [facility] Lymphocytes % 34 24 - 43 % 05/14/2024 10:48 AM [facility] Monocytes % 10 3 - 12 % 05/14/2024 10:48 AM [facility] Eosinophils % 3 1 - 4 % 05/14/2024 10:48 AM [facility] Basophils % 1 0 - 2 % 05/14/2024 10:48 AM [facility] Immature Granulocytes % 0 0 % 05/14/2024 10:48 AM [facility] Neutrophils Absolute 2.70 1.50 - 8.10 k/uL 05/14/2024 10:48 AM [facility] Lymphocytes Absolute 1.74 1.10 - 3.70 k/uL 05/14/2024 10:48 AM [facility] Monocytes Absolute 0.50 0.10 - 1.20 k/uL 05/14/2024 10:48 AM EDT [facility] Eosinophils Absolute 0.15 0.00 - 0.44 k/uL 05/14/2024 10:48 AM EDT [facility] Basophils Absolute 0.04 0.00 - 0.20 k/uL 05/14/2024 10:48 AM EDT [facility] Immature Granulocytes Absolute <0.03 0.00 - 0.30 k/uL 05/14/2024 10:48 AM EDT [facility] 05/14/2024 10:4 8 AM EDT 05/14/2024 10:49 AM EDT Misha Roman MD HEMATOLOGY ORDERABLES Final Re sult Performing Organization Address [facility] Co de Phone Number [facility] [address] [place] [address] * Hepatitis C Antibody (05/14/2024 10:48 AM EDT) Hepatitis C Ab NONREACTIVE NONREACTIVE 05/15/19 10:48 AM EDT [facility] Comment: The hepatitis C procedure used in our laboratory is a Chemiluminescent test specific for three recombinant HCV antigens. A negative anti-HCV result indicates that the antibodies to hepatitis C virus are not present at this time. Individuals with reactive anti-HCV should be considered infected and infectious until proven otherwise. Confirmation of all equivocal or reactive results is recommended by ordering HCV RNA by PCR. 05/14/2024 10:4 8 AM EDT 05/14/2024 10:49 AM EDT Misha Roman MD IMMUNOLOGY ORDERABLES Final Re sult Performing Organization Address [facility]/ZIP Co de Phone Number [facility] [address] [place] [address], [facility] [phone] [facility] [address] [place] [address] * Hepatitis C RNA, quantitative, PCR (05/14/2024 10:48 AM EDT) Pathologist [facility] Source .PLASMA 05/14/2024 10:48 AM EDT [facility] HCV RNA PCR, Quant Not Detected Not Detected 05/14/2024 10:48 AM EDT [facility] Comment: INTERPRETIVE INFORMATION: HCV by Quantitative NAAT, Serum or Plasma Normal Range for this assay is Not Detected . The quantitative range of this assay is 15-30,000,000 IU/mL (1.17-7.48 log IU/mL). Lower limit of quantitation(LLoQ) is 15 IU/mL(1.17 log IU/mL). LLoQ values do not apply to diluted specimens. A result of Not Detected does not rule out the presence of inhibitors in the patient specimen or hepatitis C virus RNA concentrations below the level of detection of the test. Care should be taken when interpreting any single viral load determination. This test should not be used for blood donor screening, associated re-entry protocols, or for screening Human Cell, Tissues and Cellular Tissue-Based Products (HCT/P). 05/14/2024 10:4 8 AM EDT 05/14/2024 10:49 AM EDT Misha Roman MD IMMUNOLOGY ORDERABLES Final Re sult [facility] [address] [place] [address], [facility] [phone] [place] [id number], [facility] [phone] * Vitamin D 25 Hydroxy (05/14/2024 10:48 AM EDT) [facility] Vit D, 25-Hydroxy 33.2 30.0 - 100.0 ng/mL 05/14/2024 10:48 AM EDT [facility] Comment: Reference Range: Vitamin D status Range Deficiency <20 ng/mL Mild Deficiency 20-30 ng/mL Sufficiency 30-100 ng/mL Toxicity >100 ng/mL 05/14/2024 10:4 8 AM EDT 05/14/2024 10:49 AM EDT us Misha Roman MD CHEMISTRY ORDERABLES Final Res ult [facility] [address] [place] [address], [facility] [phone] [facility] [place] [id number], [facility] [phone] * Protime-INR (05/14/2024 10:48 AM EDT) Protime 12.5 11.7 - 14.1 sec 05/14/2024 10:48 AM EDT [facility] INR 1.0 05/14/2024 10:48 AM EDT [facility] Comment: Therapeutic Range: Moderate Anticoagulant Intensity: INR = 2.0-3.0 High Anticoagulant Intensity: INR = 2.5-3.5 05/14/2024 10:4 8 AM EDT 05/14/2024 10:49 AM EDT us Misha Roman MD HEMATOLOGY ORDERABLES Final Re sult [facility] [address] [place] [id number], [facility] [phone] * (ABNORMAL) Comprehensive Metabolic Panel (05/14/2024 10:48 AM EDT) Sodium 137 136 - 145 mmol/L 05/14/2024 10:48 AM EDT [facility] Potassium 3.8 3.7 - 5.3 mmol/L 05/14/2024 10:48 AM EDT [facility] Chloride 100 98 - 107 mmol/L 05/14/2024 10:48 AM EDT [facility] CO2 26 20 - 31 mmol/L 05/14/2024 10:48 AM EDT [facility] Anion Gap 11 9 - 16 mmol/L 05/14/2024 10:48 AM EDT [facility] Glucose 128(H) 74 - 99 mg/dL 05/14/2024 10:48 AM [facility] BUN 10 6 - 20 mg/dL 05/14/2024 10:48 AM [facility] Creatinine 0.7 0.50 - 0.90 mg/dL 05/14/2024 10:48 AM [facility] Est, Glokathrine Filt Rate >90 >60 mL/min/1.7 3m2 05/14/2024 10:48 AM [facility] Comment: These results are not intended for use in patients <18 years of age. eGFR results are calculated without a race factor using the 2020 CKD-EPI equation. Careful clinical correlation is recommended, particularly when comparing to results calculated using previous equations. The CKD-EPI equation is less accurate in patients with extremes of muscle mass, extra-renal metabolism of creatine, excessive creatine ingestion, or following therapy that affects renal tubular secretion. BUN/Creatinine Ratio 14 9 - 20 05/14/2024 10:48 AM [facility] Calcium 9.4 8.6 - 10.4 mg/dL 05/14/2024 10:48 AM [facility] Total Protein 7.9 6.6 - 8.7 g/dL 05/14/2024 10:48 AM [facility] Albumin 4.5 3.5 - 5.2 g/dL 05/14/2024 10:48 AM [facility] Albumin/Globulin Ratio 1.3 1.0 - 2.5 05/14/2024 10:48 AM [facility] Total Bilirubin 0.3 0.00 - 1.20 mg/dL 05/14/2024 10:48 AM [facility] Alkaline Phosphatase 116(H) 35 - 104 U/L 05/14/2024 10:48 AM [facility] ALT 19 10 - 35 U/L 05/14/2024 10:48 AM [facility] AST 31 10 - 35 U/L 05/14/2024 10:48 AM [facility] 05/14/2024 10:4 8 AM EDT 05/14/2024 10:49 AM EDT us Misha Roman MD CHEMISTRY ORDERABLES Final Res ult [facility] [address] [place] [id number], [facility] [phone] * CT Lung Screen (Initial/Annual/Baseline) (04/08/2024 6:10 PM EST) Anatomical Region Laterality Modality Computed Tomogra phy 04/08/2024 6:54 PM EST Impressions 04/08/2024 6:55 PM EST Mild emphysema with no suspicious pulmonary nodule. LUNG RADS: Lung-RADS 1 - Negative (v2022) Management: 12 month screening LDCT RECOMMENDATIONS: If you would like to register your patient with the [facility] Lung Nodule/Lung Cancer Screening Program, please contact the Nurse Navigator at [phone]). Narrative 04/08/2024 6:55 PM EST EXAMINATION: LOW DOSE SCREENING CT OF THE CHEST WITHOUT CONTRAST 04/08/2024 6:07 pm TECHNIQUE: Low dose lung cancer screening CT of the chest was performed without the administration of intravenous contrast. Multiplanar reformatted images are provided for review. Automated exposure control, iterative reconstruction, and/or weight based adjustment of the mA/kV was utilized to reduce the radiation dose to as low as reasonably achievable. COMPARISON: None. HISTORY: Screening. History: ORDERING SYSTEM PROVIDED HISTORY: Personal history of tobacco use TECHNOLOGIST PROVIDED HISTORY: Age: Patient is 58 y.o. Smoking History: Tobacco Use Smoking status: Every Day Packs/day: 0.50 Years: 0.5 packs/day for 40.1 years (20.0 ttl pk-yrs) Types: Cigarettes Start date: 02/14/1984 Smokeless tobacco: Never Tobacco comments: Quit for 3 years when i found out i was in august 1998 Date of last lung cancer screening: No previous lung cancer screening exam Is there documentation of shared decision making?->Yes Is this a low dose CT or a routine CT?->Low Dose CT Is this the first (baseline) CT or an annual exam?->Annual Does the patient show any signs or symptoms of lung cancer?->No Smoking Status?->Every Day Pack Years->20 FINDINGS: Mediastinum: Thoracic aorta normal in course and caliber. No enlarged mediastinal or hilar lymph nodes by imaging size criteria. Heart size within normal limits. Coronary artery calcification present. Lungs/Pleura: Mild emphysema. Bibasilar atelectasis or scarring. No consolidation, pneumothorax or pleural effusion. Central airways are patent. No suspicious pulmonary nodule. Upper Abdomen: Limited visualization upper abdomen demonstrates no acute findings. Hepatic cirrhosis morphology visualized liver. Soft Tissues/Bones: Spinal degenerative changes with no acute findings. Procedure Note Juanito Uriarte, DO - 04/08/2024 EXAMINATION: LOW DOSE SCREENING CT OF THE CHEST WITHOUT CONTRAST 04/08/2024 6:07 pm TECHNIQUE: Low dose lung cancer screening CT of the chest was performed without the administration of intravenous contrast. Multiplanar reformatted imagesare provided for review. Automated exposure control, iterativereconstruction, and/or weight based adjustment of the mA/kV was utilized to reduce the radiation dose to as low as reasonably achievable. COMPARISON: None. HISTORY: Screening. History: ORDERING SYSTEM PROVIDED HISTORY: Personal history of tobaccouse TECHNOLOGIST PROVIDED HISTORY: Age: Patient is 58 y.o. Smoking History: Tobacco Use Smoking status: Every Day Packs/day: 0.50 Years: 0.5 packs/day for 40.1 years (20.0 ttl pk-yrs) Types: Cigarettes Start date: 02/14/1984 Smokeless tobacco: Never Tobacco comments: Quit for 3 years when i found out i was injuly 1998 Date of last lung cancer screening: No previous lung cancer screeningexam Is there documentation of shared decision making?->Yes Is this a low dose CT or a routine CT?->Low Dose CT Is this the first (baseline) CT or an annual exam?->Annual Does the patient show any signs or symptoms of lung cancer?->No Smoking Status?->Every Day Pack Years->20 FINDINGS: Mediastinum: Thoracic aorta normal in course and caliber. No enlarged mediastinal or hilar lymph nodes by imaging size criteria. Heart sizewithin normal limits. Coronary artery calcification present. Lungs/Pleura: Mild emphysema. Bibasilar atelectasis or scarring. No consolidation, pneumothorax or pleural effusion. Central airways arepatent. No suspicious pulmonary nodule. Upper Abdomen: Limited visualization upper abdomen demonstrates noacute findings. Hepatic cirrhosis morphology visualized liver. Soft Tissues/Bones: Spinal degenerative changes with no acute findings. IMPRESSION: Mild emphysema with no suspicious pulmonary nodule. LUNG RADS: Lung-RADS 1 - Negative (v2022) Management: 12 month screening LDCT RECOMMENDATIONS: If you would like to register your patient with the [facility] LungNodule/Lung Cancer Screening Program, please contact the Nurse Navigator at [phone]). Jean Claude Mason CLOTH PATTERN MAKER - COFFEE SAMPLER [facility] CT ORDERABLES Final Result * KELSY LAVERN DIGITAL SCREEN BILATERAL (11/30/2023 1:12 PM EDT) Anatomical Region Laterality Modality Breast Bilateral Mammography 11/30/2023 1:12 PM EDT Impressions 12/05/2023 4:14 PM EDT OVERALL ASSESSMENT: BIRADS: 1 - Negative, no evidence of malignancy. Normal interval followup in 12 months. OVERALL ASSESSMENT- NEGATIVE A letter of notification will be sent to the patient regarding the results. Performing Facility: [place] [address] Narrative 12/05/2023 4:14 PM EDT HISTORY: Screening. TECHNIQUE: Bilateral digital screening mammogram with CAD. Digital breast tomosynthesis imaging. FINDINGS: Two views of each breast were obtained. There are scattered areas of fibroglandular density. BREAST DENSITY CODE: S: Scattered No change from prior study from [place] 11/05/2021. Suspicious calcifications: None. Suspicious mass: None. (If skin markers were applied, circles represent skin lesions and linear markers represent scars.) Jean Claude Mason CLOTH PATTERN MAKER - COFFEE SAMPLER [facility] MAMMOGRAPHY ORDERAB LES Final Result * (ABNORMAL) Lipid Panel (11/24/2023 4:44 PM EDT) Cholesterol, Total 150 0 - 199 mg/dL 11/24/2023 4:44 PM EDT [facility] Comment: Cholesterol Guidelines: <200 Desirable 200-240 Borderline >240 Undesirable HDL 35(L) >40 mg/dL 11/24/2023 4:44 PM EDT [facility] Comment: HDL Guidelines: <40 Undesirable 40-59 Borderline >59 Desirable LDL Cholesterol 101(H) 0 - 100 mg/dL 11/24/2023 4:44 PM EDT [facility] Comment: LDL Guidelines: <100 Desirable 100-129 Near to/above Desirable 130-159 Borderline >159 Undesirable Direct (measured) LDL and calculated LDL are not interchangeable tests. Chol/HDL Ratio 4.0 11/24/2023 4:44 PM EDT [facility] Triglycerides 74 <150 mg/dL 11/24/2023 4:44 PM EDT [facility] Comment: Triglyceride Guidelines: <150 Desirable 150-199 Borderline 200-499 High >499 Very high Based on AHA Guidelines for fasting triglyceride, November 2011. VLDL 15 mg/dL 11/24/2023 4:44 PM EDT [facility] Blood BLOOD SPECIMEN / Unknown 11/24/2023 4:44 PM EDT 11/24/2023 4:45 PM EDT Jean Claude Mason CLOTH PATTERN MAKER - COFFEE SAMPLER CHEMISTRY ORDERABLES Fi nal Result [facility] [address] [place] [address], [facility] [phone] [place] [id number], [facility] [phone] * Colonoscopy (12/22/2021 2:13 PM EST) Narrative Epic, User - 12/22/2021 2:13 PM EST No dictation Hiral Jara MD ENDOSCOPY ORDERABLES Final Res ult from Last 3 Months or Most Recently Relevant to Health Maintenance Insurance [facility] [place] Advance Directives Healthcare Agents on File Name Relationship Healthcare Agent [facility] Communication Kang Sanju Child Primary Decision Maker Care Teams Mechanic Assistant Relationship Specialty Start Date End Date Might, Jean Claude Chatman, CLOTH PATTERN MAKER - COFFEE SAMPLER [address] [place] [id number] PCP - General Family Nurse Practitioner 10/14/21
--- OUTSIDE RECORDS SUMMARY | 2024-07-16 17:31 | XMS_ITS | Encounter Summary ---
Author Organization [facility] Address [id number] [address] [place] [address] Care Team Providers Care Metal Bonding Worker Name Role Phone Jean Claude Mason SOFTWARE APPLICATIONS SPECIALIST-FLIGHT CREW TIME CLERK Primary Care Provider [phone] Encounter Details Date Type Department Care Team (Late st Contact Info) Description 12/14/2021 Orders Only [facility] [place] [address] Transcribe, Orders Support User Pain (Primary Dx) Social History Tobacco Use Types [...] as of this encounter Visit Diagnoses Diagnosis Pain- Primary Generalized pain documented in this encounter Care Teams Metal Bonding Worker Relationship Specialty Start Date End Date Isabella, Jean Claude Chatman APRN-FLIGHT CREW TIME CLERK [address] [place] [address] PCP - General Family Medicine 11/11/21 documented as of this encounter
--- OUTSIDE RECORDS SUMMARY | 2024-07-16 17:31 | XMS_ITS | Encounter Summary ---
Author Organization [facility] Address [id number] [address] [place] [address] Care Team Providers Care Retoucher Name Role Phone Jean Claude Mason ACT ENGLISH TUTOR-MANUAL EQUIPMENT MECHANIC Primary Care Provider [phone] Encounter Details Date Type Department Care Team (Late st Contact Info) Description 12/30/2021 Orders Only [facility] [address] [place] [phone] Ref Prov, [place] [address] Social History Tobacco Use Types Packs/Day Years [...] have Coronavirus / COVID-19? No / Unsure 12/31/2021 11:55 AM EST documented as of this encounter Plan of Treatment Not on file documented as of this encounter Procedures Procedure Name Priority Date/Time Associated Diagnosis Comments EMG WITH NCV Routine 12/23/2021 documented in this encounter Results * EMG With NCV (12/23/2021) us Not In System Ref Prov NEUROLOGY ORDERABLES Marva l Result MANUALLY TRANSCRIBED RESULTS documented in this encounter Visit Diagnoses Not on filedocumented in this encounter Care Teams Retoucher Relationship Specialty Start Date End Date Isabella, Jean Claude Chatman, ACT ENGLISH TUTOR-MANUAL EQUIPMENT MECHANIC [address] [place] [address] PCP - General Family Medicine 11/11/21 documented as of this encounter
--- NOTE | 2024-07-16 17:36 | ECG_ITS ---
[facility] Test Date: 2024-07-16 Pat Name: LATASHA NAVARRO Department: Room: - Gender: Female Retirement Administrator: : 1965 Requested By: 1030 Order Number: [id number] Reading MD: SARA MCKEON M.D. Measurements Intervals [place] Rate: 80 P: 58 CA: 156 QRS: 53 QRSD: 88 T: 36 QT: 356 QTc: 392 Interpretive Statements 1100 Sinus rhythm 9110 normal ECG No previous ECG available for comparison Electronically Signed On 07-16-2024 18:11:12 EDT by SARA MCKEON M.D.
--- NOTE | 2024-07-16 17:36 | XR_ITS ---
The [place] [address] Patient Name: LATASHA NAVARRO MRN: [id number] date: 1965 Sex: F Assigned Patient Location: ED.MAIN Current Patient Location: ED.MAIN Accession/Order Number: [id number] Exam Date: 07/16/2024 17:54 Report Date: 07/16/2024 17:56 At the request of: ELENA MONTEJO MD Procedure: XR chest 1V Plain film chest Single view HISTORY: Chest pain and shortness of breath COMPARISON: None FINDINGS: SUPPORT DEVICES: None POSTSURGICAL CHANGES: None HEART: Within normal limits PULMONARY HAL: Within normal limits MEDIASTINUM: Unremarkable LUNGS AND PLEURA: Basilar linear/reticular densities. Atelectasis/scarring. Mild pneumonitis may be present. No pleural effusion or pneumothorax. BONY STRUCTURES: Intact ADDITIONAL FINDINGS None XR/XR chest 1V IMPRESSION: Basilar atelectasis/scarring. Mild basilar pneumonitis. Impression dictated by: Keegan De Jesus M.D. 07/16/2024 5:56 PM Dictation Location: [employer] Electronically authenticated by: [id number] Y Date: 07/16/2024 17:56
--- NOTE | 2024-07-16 17:39 | ED.GENADUL1 ---
HPI HPI - General Adult General Chief complaint: Chest Pain Stated complaint: Chest Pain Time Seen by Provider: 07/16/24 17:30 Source: patient Mode of arrival: ambulance Limitations: no limitations History of Present Illness HPI narrative: 59-year-old female presents to the emergency department for difficulty breathing. She has been sick for about 4 days and has been coughing up some phlegm. No known fever. She has a history of COPD and she was given aerosol treatment by the paramedics. The patient reports adverse reactions to IV Solu-Medrol and prefers not to have it. She is feeling improved after aerosol treatment given by the paramedics. Related Data Home Medications ?Medication ?Instructions ?Recorded ?Confirmed albuterol sulfate 90 mcg/actuation inhalation 07/16/24 aerosol inhaler amlodipine 10 mg tablet mg 07/16/24 aripiprazole 2 mg tablet mg 07/16/24 buspirone 10 mg tablet mg 07/16/24 cetirizine 5 mg tablet mg 07/16/24 furosemide 40 mg tablet mg 07/16/24 gabapentin 600 mg tablet mg 07/16/24 hydroxyzine pamoate 50 mg capsule mg 07/16/24 levothyroxine 25 mcg tablet mcg 07/16/24 rifaximin 550 mg tablet (Xifaxan) mg 07/16/24 spironolactone 50 mg tablet mg 07/16/24 trazodone 50 mg tablet mg 07/16/24 Previous Rx's ?Medication ?Instructions ?Recorded ondansetron 4 mg disintegrating 4 mg PO Q8H PRN nausea and 02/12/24 tablet vomiting #10 tabs azithromycin 250 mg tablet See Rx Instructions PO .COMPLEX #6 07/16/24 (Zithromax Z-Gilles) tabs Allergies Allergy/AdvReac Type Severity Reaction Status Date / Time amoxicillin (From Augmentin) AdvReac Severe Hives Verified 07/16/24 17:35 clavulanic acid (From AdvReac Severe Hives Verified 07/16/24 17:35 Augmentin) metoclopramide (From Reglan) AdvReac Severe Muscle Pain Verified 07/16/24 17:35 Opioid HPI Opioid Management Most Recent Opioid Data: Last Pain Scale 10 02/12/24, 13:41 Review of Systems ROS Narrative A ten point review of systems is negative except as noted above. PFSH PFSH Social History Little interest or pleasure in doing things: not at all Feeling down, depressed, or hopeless: not at all Exam Narrative Exam Narrative: Nurses note and vital signs reviewed and patient is not hypoxic. General: The patient appears well and in no apparent distress. Patient is resting comfortably on cart. Skin: Warm, dry, no pallor noted. There is no rash noted. Head: Normocephalic, atraumatic Eye: Normal conjunctiva, no drainage Ears, Nose, Mouth, and Throat: oral mucosa is moist. Nares patent. Cardiovascular: Regular Rate and Rhythm Respiratory: Bilateral rhonchi. She is speaking in full sentences. Breath sounds are equal. Back: non-tender, no CVA tenderness bilaterally to percussion. GI: Soft and nontender Musculoskeletal: The patient has no evidence of calf tenderness, no pitting edema, symmetrical pulses noted bilaterally Neurological: A&O, normal speech Psychiatric: Cooperative Constitutional Vital Signs, click to edit/add: Last Vital Signs Temp 97.9 F 07/16/24 17:35 Pulse 88 07/16/24 17:35 Resp 24 H 07/16/24 17:35 BP 107/66 07/16/24 17:35 Pulse Ox 96 07/16/24 17:45 O2 Del Method Room Air 07/16/24 17:45 Course Vital Signs Vital signs: Vital Signs Temperature 97.9 F 07/16/24 17:35 Pulse Rate 88 07/16/24 17:35 Respiratory Rate 24 H 07/16/24 17:35 Blood Pressure 107/66 07/16/24 17:35 Pulse Oximetry 96 07/16/24 17:35 Oxygen Delivery Method Room Air 07/16/24 17:35 Temperature 97.9 F 07/16/24 17:35 Pulse Rate 88 07/16/24 17:35 Respiratory Rate 24 H 07/16/24 17:35 Blood Pressure 107/66 07/16/24 17:35 Pulse Oximetry 96 07/16/24 17:45 Oxygen Delivery Method Room Air 07/16/24 17:45 Medical Decision Making [facility] Narrative Medical decision making narrative: Her workup is negative including her EKG and the troponin. She has no symptoms now including chest pain or shortness of breath. She was placed on Zithromax. She was offered prednisone but she states she does not do well on prednisone and prefers not to take it. She has a new rescue inhaler at home. She also has a steroid inhaler waiting at the pharmacy for her. Treatment diagnosis and follow-up were discussed with the patient. Differential Diagnosis Differential Diagnosis: COPD exacerbation, pneumonia, PE, myocardial infarction Lab Data Lab results reviewed: Yes I reviewed the patient's lab results Labs: Lab Results 07/16/24 07/16/24 Range/Units 17:25 17:40 WBC 6.7 (4.0-11.0) 10^3/uL RBC 4.07 L (4.20-5.40) 10^6/uL Hgb 12.0 (12.0-16.0) g/dL Hct 35.0 L (36.0-48.0) % MCV 86.0 (81.0-99.0) fL MCH 29.5 (26.7-34.0) pg MCHC 34.3 (29.9-35.2) g/dL RDW 14.4 (11.0-15.0) % Plt Count 132 L (150-450) 10^3/uL MPV 9.6 (9.5-13.5) fL Neut % (Auto) 63.1 (43.0-75.0) % Lymph % (Auto) 22.3 (20.5-60.0) % [place] % (Auto) 12.0 (1.7-12.0) % Eos % (Auto) 1.8 (0.9-7.0) % Baso % (Auto) 0.3 (0.2-2.0) % Neut # (Auto) 4.2 (1.4-6.5) 10^3/uL Lymph # (Auto) 1.5 (1.2-3.8) 10^3/uL [place] # (Auto) 0.8 (0.3-0.8) 10^3/uL Eos # (Auto) 0.1 (0.0-0.7) 10^3/uL Baso # (Auto) 0.0 (0.0-0.1) 10^3/uL Abs Immat Gran (auto) 0.03 (0.00-0.03) 10^3/uL Imm/Tot Granulo (auto) 0.5 (0.0-0.5) % Sodium 138 (136-145) mmol/L Potassium 3.9 (3.5-5.1) mmol/L Chloride 102 (98-107) mmol/L Carbon Dioxide 24.2 (21.0-32.0) mmol/L Anion Gap 15.7 BUN 10.0 (7.0-18.0) mg/dL Creatinine 0.54 L (0.55-1.02) mg/dL Est GFR ( Amer) >60 (>=60 mL/min/1.73m^2) Est GFR (Non-Af Amer) >60 (>=60 mL/min/1.73m^2) BUN/Creatinine Ratio 18.5 Glucose 123 H (74-106) mg/dL Calcium 8.5 (8.5-10.1) mg/dL Troponin I High Sens <4.0 L (4.0-51.3) pg/mL SARS-CoV-2 Ag (CV2AG) Negative (NEGATIVE) Imaging Data Chest x-ray: Radiologist's impression: ITS Impressions Chest X-Ray 07/16/24 17:36 IMPRESSION: Basilar atelectasis/scarring. Mild basilar pneumonitis. Impression dictated by: Keegan De Jesus M.D. 07/16/2024 5:56 PM Dictation [facility] Electronically authenticated by: [id number] Y Date: 07/16/2024 17:56 ECG Data Attestation: I personally reviewed and interpreted this ECG as follows: (EKG on my interpretation shows sinus rhythm with a rate of 80 and no acute change) Discharge Plan Discharge Chief Complaint: Chest Pain Clinical Impression: COPD exacerbation Patient Disposition: Home, Self-Care Time of Disposition Decision: 18:21 Condition: Good Mode of Transportation: Private Vehicle Prescriptions / Home Meds: New azithromycin [Zithromax Z-Gilles] 250 mg tablet See Rx Instructions .ROUTE .COMPLEX Qty: 6 0RF Rx Instructions: For 250 mg dose pack: take 500 mg today (day 1), then 250 mg for 4 days (days 2-5) No Action ondansetron 4 mg tablet,disintegrating 4 mg PO Q8H PRN (Reason: nausea and vomiting) Qty: 10 0RF furosemide 40 mg tablet gabapentin 600 mg tablet trazodone 50 mg tablet cetirizine 5 mg tablet hydroxyzine pamoate 50 mg capsule levothyroxine 25 mcg tablet amlodipine 10 mg tablet buspirone 10 mg tablet albuterol sulfate 90 mcg/actuation HFA aerosol inhaler INHALATION spironolactone 50 mg tablet aripiprazole 2 mg tablet Xifaxan 550 mg tablet Print Language: Croatian Instructions: COPD (Chronic Obstructive Pulmonary Disease) (ED) Referrals: Physician,Non-Staff, MD [Primary Care Provider] - 1 week
[2024-07-16 17:55] LABS: Basophils Percent Auto 0.3 % (0.2-2.0); Eosinophils Absolute Auto 0.1 10^3/uL (0.0-0.7); Eosinophils Percent Auto 1.8 % (0.9-7.0); Immature Granulocytes Abs Auto 0.03 10^3/uL (0.00-0.03); Immature Granulocytes Pct Auto 0.5 % (0.0-0.5); Lymphocytes Absolute Auto 1.5 10^3/uL (1.2-3.8); Lymphocytes Percent Auto 22.3 % (20.5-60.0); Mean Corpuscular HGB Conc 34.3 g/dL (29.9-35.2); Mean Corpuscular Hemoglobin 29.5 pg (26.7-34.0); Mean Platelet Volume 9.6 fL (9.5-13.5); Monocytes Absolute Auto 0.8 10^3/uL (0.3-0.8); Neutrophils Absolute Auto 4.2 10^3/uL (1.4-6.5); Neutrophils Percent Auto 63.1 % (43.0-75.0); Platelet Count 132 10^3/uL (150-450); Red Blood Count 4.07 10^6/uL (4.20-5.40); Red Cell Distribution Width 14.4 % (11.0-15.0); White Blood Count 6.7 10^3/uL (4.0-11.0)
[2024-07-16 18:01] LABS: Internal Control Within Normal Limits; SARS-CoV-2 Ag NEGATIVE (NEGATIVE)
[2024-07-16 18:15] LABS: Anion Gap 15.7; BUN Creatinine Ratio 18.5; Calcium 8.5 mg/dL (8.5-10.1); Carbon Dioxide 24.2 mmol/L (21.0-32.0); Chloride 102 mmol/L (98-107); Estimated GFR (African America >60 (>=60 mL/min/1.73m^2); Estimated GFR (Non-African Ame >60 (>=60 mL/min/1.73m^2); Glucose 123 mg/dL (74-106); Potassium 3.9 mmol/L (3.5-5.1); Sodium 138 mmol/L (136-145); Troponin I High Sensitivity <4.0 pg/mL (4.0-51.3)
== END 2024-07-16 18:54 | disposition home or self-care (01) ==
PROVIDERS: Emergency Provider Emergency Medicine; Family Provider Family Medicine
DX: J44.1 Chronic obstructive pulmonary disease with (acute) exacerbation (principal)
CPT/HCPCS: 36415; 71045; 80048; 84484; 85025; 87811; 93005; 99285

== ENCOUNTER 2024-11-02 16:09 | Emergency (ER) | payer OTHER, SELFPAY ==
--- OUTSIDE RECORDS SUMMARY | 2023-06-05 05:00 | XMS_ITS ---
Author Organization [facility] Address [address] [place] [address] Care Team Providers Care Binder Fixer Name Role Phone Might Jean Claude SETH Primary Care Provider Unavailab Fiona Dobbins Unavailable [phone] Nic Russell Unavailable [phone] REASON FOR VISIT RC LEFT TOTAL HIP 11/29/22 Medications Medication SIG (Take, Route, Fr equency, Duration) Notes Start Date End Date Status montelukast Unknown FLUoxetine Unknown furosemide Unknown Mobic 15 mg 1 tab(s) orally once a day for 30 day(s) 12/05/2022 Unknown amLODIPine Unknown cloNIDine Unknown tizanidine hcl Unkno wn gabapentin Unknown Oxycodone Unknown spironolactone Unkno wn propranolol Unknown DULoxetine Unknown Encounters Encounter Location Date Provider Diagnosis [facility] Office [address] [place] [address] [address] [address] 06/05/2023 Nic Russell Aftercare following joint replacement surgery Z47.1 and Presence of left artificial hip joint Z96.642 Assessments Encounter Date Diagnosis (ICD Code) Assessment Notes Treatment Notes Treatment Clinical Notes Section Notes 06/05/2023 Aftercare following joint replacement surgery (ICD-10 - Z47.1) 06/05/2023 Presence of left artificial hip joint (ICD-10 - Z96.642) Plan Of Treatment Pending Test Test Name Order Date RSS: HIP LEFT POSTOP AP X-FIRE LAT, AP P ERIN STANDING [id number] 06/05/2023 Progress Notes * LATASHA NAVARRO LDOB: [birth year] (59 yo F)Acc No.[id number]:06/05/2023 Patient: LATASHA MAY Provider: Sheridan Russell MD :1965 A ge:57 Y S ex:Female Date:06/05/2023 Address:[address] [place] [address] Pcp:DORINDA Boone Subjective: * Chief Complaints: * 1 . RC LEFT TOTAL HIP 11/29/22. * Medical History: * Medications: U nknown DULoxetine , Unknown propranolol , Unknown tizanidine hcl , Unknown cloNIDine , Unknown Oxycodone , Unknown gabapentin , Unknown spironolactone , Unknown montelukast , Unknown furosemide , Unknown FLUoxetine , Unknown amLODIPine , Unknown Mobic 15 mg tablet 1 tab(s) orally once a day Objective: * Vitals: Assessment: * Assessment: 1. A ftercare following joint replacement surgery - Z47.1 (Primary) 2 . P resence of left artificial hip joint - Z96.642 Plan: * Treatment: 2. P resence of left artificial hip joint I maging: RSS: HIP LEFT POSTOP AP X-FIRE LAT, AP PELVIS STANDING [address]0589 * Procedure Codes: 7 3502 X-RAY EXAM HIP UNI 2-3 VIEWS Forms: * Images: * Electronic signature of Nic Russell MD on 11/02/2024 at 04:15 PM EDT Sign off status: Pending * Provider: Sheridan Russell MD Date: 0 06/05/2023 Generated for Funmilayo ramírez/Albin/eTransmitting on: 0 11/02/2024 04:15 PM EDT
--- OUTSIDE RECORDS SUMMARY | 2023-08-07 05:40 | XMS_ITS ---
Author Organization [facility] Address [address] [place] [address] Care Team Providers Care Jewel Corner Brushing Machine Operator Name Role Phone Jean Claude Andrews Primary Care Provider Unavailab Fiona Dobbins Unavailable [phone] Nic Russell Unavailable [phone] REASON FOR VISIT LEFT TOTAL HIP 12/05 - HAVING PAIN AND DIFFICULTY WALKING Medications Medication SIG (Take, Route, Fr equency, Duration) Notes Start Date End Date Status Mobic 15 mg 1 tab(s) orally once a day for 30 day(s) 12/05/2022 Unknown amLODIPine Unknown montelukast Unknown furosemide Unknown FLUoxetine Unknown spironolactone Unkno wn tizanidine hcl Unkno wn cloNIDine Unknown Oxycodone Unknown gabapentin Unknown DULoxetine Unknown propranolol Unknown Encounters Encounter Location Date Provider Diagnosis [facility] Office [address] [place] [address] [address] [address] 08/07/2023 Nic Russell Plan Of Treatment No Information Progress Notes * MELANIE LATASHA LDOB: [birth year] (59 yo F)Acc No.[id number]:08/07/2023 Patient: LATASHA MAY Provider: Sheridan Russell MD :1965 A ge:58 Y S ex:Female Date:08/07/2023 Address:[address] [place], [place] [address] Pcp:DORINDA Boone Subjective: * Chief Complaints: * 1 . LEFT TOTAL HIP 12/05 - HAVING PAIN AND DIFFICULTY WALKING. * Medical History: * Medications: U nknown DULoxetine , Unknown propranolol , Unknown tizanidine hcl , Unknown cloNIDine , Unknown Oxycodone , Unknown gabapentin , Unknown spironolactone , Unknown montelukast , Unknown furosemide , Unknown FLUoxetine , Unknown amLODIPine , Unknown Mobic 15 mg tablet 1 tab(s) orally once a day Objective: * Vitals: Assessment: Plan: * Treatment: Forms: * Images: * Electronic signature of Nic Russell MD on 11/02/2024 at 04:15 PM EDT Sign off status: Pending * Provider: Sheridan Russell MD Date: 0 08/07/2023 Generated for Funmilayo ramírez/Albin/Tom on: 11/02/2024 04:15 PM EDT
--- OUTSIDE RECORDS SUMMARY | 2023-08-14 04:40 | XMS_ITS ---
Author Organization [facility] Address [address] [place] [address] Care Team Providers Care Well Logger Name Role Phone Jean Claude Andrews Primary Care Provider Unavailab Fiona Dobbins Unavailable [phone] Nic Russell Unavailable [phone] REASON FOR VISIT LEFT TOTAL HIP 12/05 - HAVING PAIN AND DIFFICULTY WALKING Encounters Encounter Location Date Provider Diagnosis [facility] [address] [facility] [address] [facility] [place] [address] 08/14/2023 Nic Russell Aftercare following joint replacement surgery Z47.1 Assessments Encounter Date Diagnosis (ICD Code) Assessment Notes Treatment Notes Treatment Clinical Notes Section Notes 08/14/2023 Aftercare following joint replacement surgery (ICD-10 - Z47.1) Plan Of Treatment Pending Test Test Name Order Date RSS: HIP LEFT PREOP AP LAT, AP PELVIS [place] [id number] 08/14/2023 Progress Notes * MELANIE, LATASHA LDOB: [birth year] (59 yo F)Acc No.[id number]:08/14/2023 Patient: LATASHA MAY Provider: Sheridan Russell MD :1965 A ge:58 Y S ex:Female Date:08/14/2023 Address:[address] [place], [place] [address] Pcp:DORINDA Boone Subjective: * Chief Complaints: * 1 . LEFT TOTAL HIP 12/05 - HAVING PAIN AND DIFFICULTY WALKING. * Medical History: Objective: * Vitals: Assessment: * Assessment: 1. A ftercare following joint replacement surgery - Z47.1 (Primary) Plan: * Treatment: * Procedure Codes: 7 3502 X-RAY EXAM HIP UNI 2-3 VIEWS Forms: * Images: * Electronic signature of Nic Russell MD on 11/02/2024 at 04:15 PM EDT Sign off status: Pending * Provider: Sheridan Russell MD Date: 0 08/14/2023 Generated for Funmilayo ramírez/Albin/Fadiitting on: 0 11/02/2024 04:15 PM EDT
[2024-11-02 16:15] VITALS: BP 111/63; PULSE 69; TEMP 36.6; O2SAT 95; BMI 29.9
--- OUTSIDE RECORDS SUMMARY | 2024-11-02 16:15 | XMS_ITS | Encounter Summary ---
Author Organization [facility] Address [id number] [address] [place] [address] Care Team Providers Care Calendering Machine Operator Name Role Phone Jean Claude Mason SIGNAL MAINTAINER HELPER-GLOVE MAKER Primary Care Provider [phone] Reason for Visit * Reason Onset Date Comments med refill request 03/30/2022 Encounter Details Date Type Department Care Team (Late st Contact Info) Description 03/30/2022 Telephone [facility] [address] [place] [address] Ranjana Nash, RN med refill [...] Nash RN - 03/30/2022 1:48 PM EST [facility] calls asking for Oxycodone to be refilled. She states it is not due until Monday, but she did have to take 2 additional pills as she was having some intense leg pain. Pended Oxycodone to [facility]. documented in this encounter Plan of Treatment Not on file documented as of this encounter Visit Diagnoses Not on filedocumented in this encounter Care Teams Calendering Machine Operator Relationship Specialty Start Date End Date Isabella, Jean Claude Chatman, SIGNAL MAINTAINER HELPER-GLOVE MAKER [address] [place] [address] PCP - General Family Medicine 11/11/21 documented as of this encounter
--- OUTSIDE RECORDS SUMMARY | 2024-11-02 16:15 | XMS_ITS | Encounter Summary ---
Author Organization [facility] Address [address], [address] [place] [address] Care Team Providers Care Produce Team Lead Name Role Phone IsabellaTiffanyjulianna Chatman APRN - LEAD JAVASCRIPT DEVELOPER Primary Care Provider Reason for Referral * Imaging (Routine) - Open Specialty Diagnoses / Procedures Referred By Contac t Referred To Contact Radiology Diagnoses Hepatic cirrhosis, unspecified hepatic cirrhosis type, unspecified whether ascites present (HCC) HTN (hypertension), malignant Portal hypertension (HCC) Hepatic encephalopathy (HCC) Edema of lower extremity Immunity status testing Abdominal pain, unspecified abdominal location Procedures US GUIDED PARACENTESIS Misha Roman MD [address] [place] [address] Phone: tel: fax: Referral ID Status Reason Start Date Expiration Date Visits Re quested Visits Authorized [id number] Open 01/16/2024 01/15/2025 1 1 Encounter Details Date Type Department Care Team (Latest Contact Info) Description 01/16/2024 Transcribe Orders [facility] [address] [place] [address] Misha Roman MD [address] [place] [address] Hepatic cirrhosis, unspecified hepatic cirrhosis type, unspecified whether ascites present (HCC) (Primary Dx); HTN (hypertension), malignant; Portal hypertension (HCC); Hepatic encephalopathy (HCC); Edema of lower extremity; Immunity status testing; Abdominal pain, unspecified abdominal location Social History Tobacco Use Types Packs/Day Years Used Date Smoking Tobacco: Every Day Cigarettes 0.5 40.7 Started: 02/14/1984 Smokeless Tobacco: Never Comments:Quit for [...] place to sleep or slept in a alf (including now)? Patient refused 12/27/2022 Housing Stability Vital Sign Answer Abdi e Recorded Unable to Pay for Housing in the Last Year Not o n file 11/26/2023 Number of Times Moved in the Last Year Not on fi le 11/26/2023 At any time in the past 12 m [facility], were you homeless or living in a alf (including now)? No 11/26/2023 Food Insecurity Answer [...] Description 12/16/2024 1:00 PM EST Office Visit [facility] [place] [address] [place] [address] Jean Claude Mason, DUCT LAYER HELPER - LEAD JAVASCRIPT DEVELOPER [address] [place] [address] 6 month Scheduled Orders Name Type Priority [...] location documented in this encounter Care Teams Produce Team Lead Relationship Specialty Start Date End Date Might, Jean Claude Chatman, DUCT LAYER HELPER - LEAD JAVASCRIPT DEVELOPER [address] [place] [address] PCP - General Family Nurse Practitioner 10/14/21 documented as of this encounter
--- OUTSIDE RECORDS SUMMARY | 2024-11-02 16:15 | XMS_ITS | Encounter Summary ---
Author Organization [facility] Address [address], [address] [place] [address] Care Team Providers Care Welder Assistant Name Role Phone Jean Claude Mason Compa VIEYRAN - BOX SEALING MACHINE CATCHER Primary Care Provider Encounter Details Date Type Department Care Team (Latest Contact Info) Description 10/20/2021 Transcribe Orders [place] [facility] [address] [place] [address] Allyn Elkins MD [address] [place] [address] Cervical radiculitis (Primary Dx); Lumbar radiculopathy Social History Tobacco Use Types Packs/Day Years Used Date Smoking Tobacco: Every Day Cigarettes 0.5 25.7 Started: 02/13/1999 Smokeless Tobacco: Never Alcohol Use [...] Description 12/16/2024 1:00 PM EST Office Visit [facility] [address] [place] [address] Jean Claude Mason APRN - CNP [address] [place] [address] 6 month documented as of this encounter Visit Diagnoses Diagnosis Cervical radiculitis- Primary Brachial neuritis or radiculitis nos Lumbar radiculopathy Thoracic or lumbosacral neuritis or radiculitis, unspecified documented in this encounter Additional Health Concerns Infection Onset Date Last Indicated Resolved Time COVID-19 (Rule Out) 04/13/2022 04/13/2022 04/14/19 23 1:26 PM EST documented as of this encounter Care Teams Welder Assistant Relationship Specialty Start Date End Date Jean Claude Mason APRN - CNP [address] [place] [address] PCP - General Family Nurse Practitioner 10/14/21 documented as of this encounter
--- OUTSIDE RECORDS SUMMARY | 2024-11-02 16:15 | XMS_ITS | Encounter Summary ---
Author Organization [facility] Address [address], [address] [place] [address] Care Team Providers Care Commercial Plumber Name Role Phone Jean Claude Mason APRN - CUSTOMER EXPERIENCE LEADER Primary Care Provider Encounter Details Date Type Department Care Team (Latest Contact Info) Description 10/20/2021 Transcribe Orders [facility] [address] [place] [id number] Radhika Mcarthur MA Brachial neuritis (Primary Dx); [...] Description 12/16/2024 1:00 PM EST Office Visit [facility] [address] [place] [address] Jean Claude Mason APRN - [place]IS[place] [address] [place] [address] 6 month documented as of this encounter [...] documented as of this encounter Care Teams Commercial Plumber Relationship Specialty Start Date End Date Jea nClaude Mason APRN - CNP [address] [place] [address] PCP - General Family Nurse Practitioner 10/14/21 documented as of this encounter
--- OUTSIDE RECORDS SUMMARY | 2024-11-02 16:15 | XMS_ITS | Encounter Summary ---
Author Organization [employer] [facility] Address [facility] [place] [place] [address] [place] [address] Care Team Providers Care Artificial Flower Maker Name Role Phone Jean Claude Mason GAMES DEALER-DIRECTOR EDUCATIONAL RADIO Primary Care Provider [phone] Reason for Visit * Reason Comments Med Refill Encounter Details Date Type Department Care Team (Late st Contact Info) Description 11/18/2016 Refill [facility] [address] [place] [id number] Bruce Kinney MD [address] [place] [address] Med Refill Social History Tobacco Use Types [...] on filedocumented in this encounter Care Teams Artificial Flower Maker Relationship Specialty Start Date End Date Isabella, Jean Claude Chatman APRN-DIRECTOR EDUCATIONAL RADIO [address] [place] [address] PCP - General Family Medicine 11/11/21 documented as of this encounter
--- OUTSIDE RECORDS SUMMARY | 2024-11-02 16:15 | XMS_ITS | Encounter Summary ---
Author Organization [facility] Address [address], [address] [place] [address] Care Team Providers Care Imcu Specialist Name Role Phone Tiffany Masonjulianna Chatman APRN - UMBRELLA TIPPER Primary Care Provider Encounter Details Date Type Department Care Team (Late st Contact Info) Description 01/16/2024 Transcribe Orders [facility] [address] [place] [address] Rudy Roque MD [address] [place] [address] Social History Tobacco Use Types Packs/Day Years Used Date Smoking Tobacco: Every Day Cigarettes 0.5 40.7 Started: 02/14/1984 Smokeless Tobacco: Never Comments:Quit for 3 years wh en i found out i was in august 1998 Alcohol Use Standard Drinks/Week Comments Not Currently 0 (1 standard drink = 0.6 oz pure alcohol) Recently quit because of health issues Overall Financial Resource Strain (CARDIA) Manuele r Date Recorded How hard is it [...] place to sleep or slept in a jail (including now)? Patient refused 12/27/2022 Housing Stability Vital Sign Answer Abdi e Recorded Unable to Pay for Housing in the Last Year Not o n file 11/26/2023 Number of Times Moved in the Last Year Not on fi le 11/26/2023 At any time in the past 12 m [facility], were you homeless or living in a jail (including now)? No 11/26/2023 Food Insecurity Answer [...] Description 12/16/2024 1:00 PM EST Office Visit [facility] [address] [place] [address] Jean Claude Mason APRN - CNP [address] [place] [address] 6 month documented as of this encounter Visit Diagnoses Not on filedocumented in this encounter Care Teams Imcu Specialist Relationship Specialty Start Date End Date Jean Claude Mason APRN - FRANSISCO [address] [place] [address] PCP - General Family Nurse Practitioner 10/14/21 documented as of this encounter
--- OUTSIDE RECORDS SUMMARY | 2024-11-02 16:15 | XMS_ITS | Encounter Summary ---
Author Organization [facility] Address [facility] [id number] [address] [place] [address] Care Team Providers Care Academic Program Specialist Name Role Phone Jean Claude Mason HR ADVISOR-[place] Primary Care Provider [phone] [phone] Encounter Details Date Type Department Care Team (Late st Contact Info) Description 11/17/2022 Orders Only [facility] [address] [place] [phone] External, Scanning Provider Social History Tobacco Use [...] ECG ORDERABLES Final Result Performing Organization Address City/State/[facility] Co de Phone Number MANUALLY TRANSCRIBED RESULTS documented in this encounter Visit Diagnoses Not on filedocumented in this encounter Care Teams Academic Program Specialist Relationship Specialty Start Date End Date Might, Jean Claude Chatman, HR ADVISOR-OAK TANNER [address] [place] [id number] PCP - General Family Medicine 11/11/21 documented as of this encounter
--- OUTSIDE RECORDS SUMMARY | 2024-11-02 16:15 | XMS_ITS | Encounter Summary ---
Author Organization [facility] Address [address], [address] [place] [address] Care Team Providers Care Derrick Worker Name Role Phone Jean Claude Mason APRN - DISTRICT FIRE MANAGEMENT OFFICER Primary Care Provider Reason for Referral * Imaging (Routine) - Closed Specialty Diagnoses / Procedures Referred By Contac t Referred To Contact Radiology Diagnoses Thoracic radiculitis Procedures MRI THORACIC SPINE WO CONTRAST Allyn Elkins MD [address] [place] [address] Phone: tel: fax: Referral ID Status Reason Start Date Expiration Date Visits Re quested Visits Authorized [id number] Closed 10/20/2021 10/20/2022 1 1 * Imaging (Routine) - Closed Specialty Diagnoses / Procedures Referred By Contac t Referred To Contact Radiology Diagnoses Lumbar radiculopathy Procedures MRI LUMBAR SPINE WO CONTRAST Allyn Elkins MD [address] [place] [address] Phone: tel: fax: Referral ID Status Reason Start Date Expiration Date Visits Re quested Visits Authorized [id number] Closed 10/20/2021 10/20/2022 1 1 * Imaging (Routine) - Closed Specialty Diagnoses / Procedures Referred By Contac t Referred To Contact Radiology Diagnoses Cervical radiculitis Procedures MRI CERVICAL SPINE WO CONTRAST Allyn Elkins MD [address] [place] [address] Phone: tel: fax: Referral ID Status Reason Start Date Expiration Date Visits Re quested Visits Authorized [id number] Closed 10/20/2021 10/20/2022 1 1 Encounter Details Date Type Department Care Team (Latest Contact Info) Description 10/20/2021 Transcribe Orders [facility] [address] [place], [place] [id number] Allyn Elkins MD [address] [place] [address] Cervical radiculitis (Primary Dx); Lumbar radiculopathy; [...] Description 12/16/2024 1:00 PM EST Office Visit [facility] [place] [address] [place] [address] Jean Claude Mason APRN - CNP [address] [place] [address] 6 month documented as of this encounter [...] 3. Retrolisthesis at C5-6. Allyn Elkins MD IM MRI ORDERABLES Final Result * MRI THORACIC [...] impinges on left S1 nerveroot. RECOMMENDATIONS: Unavailable [facility] Severo [place]ILL[place] IMRosa MRI ORDERABLES Final Result [...] documented as of this encounter Care Teams Derrick Worker Relationship Specialty Start Date End Date Isabella, Jean Claude Chatman, PATIENT PARTNER - DISTRICT FIRE MANAGEMENT OFFICER [address] [place] [address] PCP - General Family Nurse Practitioner 10/14/21 documented as of this encounter
--- OUTSIDE RECORDS SUMMARY | 2024-11-02 16:15 | XMS_ITS | Patient Health Record ---
Author Organization [facility] Address [address] [place] [address] Care Team Providers Care Photograph Mounter Name Role Phone Might Jean Claude SETH Primary Care Provider Unavailab Fiona Dobbins Unavailable [phone] Nic Russell Unavailable [phone] Allergies Allergen (clinical drug ingredient) Drug/Non Drug [...] Problem Status W/U Status Risk Notes Problem 245908491 Aftercare following joint replacement surgery (Z47.1) Active confirmed Problem [id number] Primary osteoarthritis of left hip (M16.12) Active confirmed Problem 97831736 Pain in left hip (M25.552) Active confirmed Problem [id number] Presence of left artificial hip joint (Z96.642) Active confirmed Problem [id number] Status post tota l hip replacement, 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) Active confirmed Encounters Encounter Location Date Provider Diagnosis [facility] [address] [address] 12/04/2023 Nic Russell Aftercare following joint replacement surgery Z47.1 and Presence of left artificial hip joint Z96.642 [place] [address] [place] [address] 12/04/2023 Nic Russell [place] [address] [place] [address] 12/04/2023 Nic Russell Assessments Encounter Date Diagnosis [...] PREOP AP LAT, AP [place] [id number] 11/28/2022 RSS: HIP LEFT POSTOP AP X-FIRE LAT, AP P ERIN STANDING 10827 12/19/2022 RSS: HIP LEFT POSTOP AP X-FIRE LAT, AP P ERIN STAND[place] 94228 01/30/2023 RSS: HIP LEFT POSTOP AP X-FIRE LAT, AP P ERIN STANDING [address]805 06/12/2023 RSS: HIP LEFT POSTOP AP X-FIRE LAT, AP P ERIN STANDING 13590 12/04/2023 RSS POST OP PT/OT - 3X4 12/09/2022 Insurance Providers Payer Name Payer Address Payer Phone Subscriber Number Group Number Insured Name Patient Relationship to Insured Coverage Start Date Coverage End Date Medicaid [employer] [place] [address] [place] [address] [id number] MELANIELATASHA Self - patient is the insured [...]
--- OUTSIDE RECORDS SUMMARY | 2024-11-02 16:15 | XMS_ITS | Encounter Summary ---
Author Organization [facility] Address [id number] [address] [place] [address] Care Team Providers Care Band Sawmill Operator Name Role Phone Jean Claude Mason CONTRACTOR GENERAL BUILDING-MOLDED GOODS INSPECTOR TRIMMER Primary Care Provider [phone] [phone] Encounter Details Date Type Department Care Team (Late st Contact Info) Description 02/16/2022 Telephone [facility] [address] [place] [phone] Mo Garcia MD [address] [place] [address] [address] [place] [phone] Social History Tobacco Use Types Packs/Day [...] on filedocumented in this encounter Care Teams Band Sawmill Operator Relationship Specialty Start Date End Date Jean Claude Mason APRN-FRANSISCO [address] [place] [address] PCP - General Family Medicine 11/11/21 documented as of this encounter
--- OUTSIDE RECORDS SUMMARY | 2024-11-02 16:15 | XMS_ITS | Encounter Summary ---
Author Organization [facility] Address [facility]-[id number] [address] [place] [address] Care Team Providers Care Hand Cooper Helper Name Role Phone Jean Claude Mason BUNKER WORKER-LENS ASSISTANT Primary Care Provider [phone] [phone] Encounter Details Date Type Department Care Team (Late st Contact Info) Description 09/27/2023 Telephone [facility] Ballast Cleaning Operator Sign In [address] [place] [phone] Esvin Mauricio APRN-CNP [address] [place] [address] Social History Tobacco Use Types Packs/Day Years [...] site check. I believe she lives in [facility]. This can be done in the [place] office. Thanks! * Telephone Encounter - Geeta [...] on filedocumented in this encounter Care Teams Hand Cooper Helper Relationship Specialty Start Date End Date Might, MAYDA Shah [address] [place] [address] PCP - General Family Medicine 11/11/21 documented as of this encounter
--- OUTSIDE RECORDS SUMMARY | 2024-11-02 16:16 | XMS_ITS | Clinical Summary ---
Author Organization [facility] Address [address], [address] [place] [address] Care Team Providers Care Financial Services Representative Name Role Phone Jean Claude Mason APRN - WOODYARD OPERATOR Primary Care Provider Allergies Active Allergy Reactions Criticality Noted Date Comments Amoxicillin-Pot Clavulanate 10/16/19 15 Morphine 10/15/2014 Metoclopramide 10/15/2014 Medications Multiple Vitamins-Minerals (THERAPEUTIC MULTIVITAMIN-ARMATURE COIL WINDER ALS) tablet Take 1 tablet by mouth [...] amLODIPine (NORVASC) 10 MG tablet 5 Active naloxone 4 MG/0.1ML LIQD nasal [...] needed (spasm) 60 tablet 2 5 Active levothyroxine (SYNTHROID) 25 MCG tabletIndications: Subclinical hypothyroidism Take 1 tablet by mouth daily 90 tablet 1 5 Active albuterol sulfate HFA (VENTOLIN HFA) 108 (90 Base) MCG/ACT inhaler Inhale 2 puffs into the lungs 4 times daily as needed for Wheezing INHALE TWO PUFFS BY MOUTH FOUR TIMES A DAY NEEDED FOR WHEEZING 18 g 2 5 Active fluticasone (FLOVENT HFA) 44 MCG/ACT inhalerIndications :Viral upper respiratory tract infection with cough Inhale 2 puffs into the lungs 2 times daily 1 each 5 Active gabapentin (NEURONTIN) 600 MG tabletIndications: Spinal stenosis of lumbosacral region Take 1 tablet by mouth 3 times daily for 30 days. 90 tablet 5 025 Active albuterol sulfate HFA (VENTOLIN HFA) 108 (90 Base) MCG/ACT inhaler Inhale 2 puffs into the lungs 4 times daily as needed for Wheezing INHALE TWO PUFFS BY MOUTH FOUR TIMES A DAY NEEDED FOR WHEEZING 18 g 2 5 025 Discontin ued(REORD ER) fluticasone (FLOVENT HFA) 44 MCG/ACT inhalerIndications :Viral upper respiratory tract infection with cough Inhale 2 puffs into the lungs 2 times daily for 7 days 1 each 5 025 Discontin ued(REORD ER) gabapentin (NEURONTIN) 600 MG tabletIndications: Spinal stenosis of lumbosacral region Take 1 tablet by mouth 3 times daily for 30 days. 90 tablet 5 025 Discontin ued(REORD ER) Active Problems [...] Encounters Date Type Department Care Team Description [facility] [place] [address] [place] [address] Jean Claude Mason APRN - CNP Medication Refill 10/16/2024 [facility] [address] [place] [address] Rosemary Taylor APRN - CNP Medication Refill [facility] [place] [address] [place] [address] Jean Claude Mason, LEAD DRIVER - WOODYARD OPERATOR Medication Refill 10/10/[address] [address] Rosemary Taylor, LEAD DRIVER - WOODYARD OPERATOR Medication Refill 10/09/2024 Refill [facility] [address] [place] [address] Rosemary Taylor, LEAD DRIVER - WOODYARD OPERATOR Medication Refill 09/20/2024 Refill [facility] [address] [place] [address] Jean Claude Mason, LEAD DRIVER - WOODYARD OPERATOR Medication Refill 08/22/2024 Refill [facility] [address] [place] [address] Jean Claude Mason, LEAD DRIVER - WOODYARD OPERATOR Medication Refill 08/15/2024 Refill [facility] [address] [place] [address] Jean Claude Mason, LEAD DRIVER - WOODYARD OPERATOR Medication Refill from Last 3 Months Immunizations Immunization Administration Dates Next Due COVID-19, Inactive, MODERNA BLUE border, Primary or Immunocompromised, (age 12y+) 03/05/2021,06/11/2020,05/14/2020 Influenza Virus Vaccine 01/12/2022 Influenza, FLUCELVAX, [...] Father Yaya Cohn Heart Attack Father Yaya Lalit High Blood Pressure Father Yaya Cohn Liver Cancer Father Yaya Cohn Arthritis Mother Jesenia Cohn Atrial Fibrillation Mother Jesenia Cohn Cancer Mother Jesenia Cohn High Blood Pressure Mother Jesenia Cohn Stroke Paternal Grandmother Judith Cancer Paternal Uncle Arvil Cirrhosis Paternal Uncle Arvil Prostate Cancer Paternal Uncle Arvil Anemia Sister 1 Susan Clem Arthritis Sister 1 Susan Clem Alcohol Abuse Sister 2 Ashley Carmonalanahan Anemia Sister 2 Ashley Lalit Arthritis Sister 2 Ashley Cohn Cancer Sister 2 Ashley Cohn High Blood Pressure Sister 2 Ashley Cohn Arthritis Sister 3 Aliyah Lakshmi Asthma Sister 3 Aliyah Lakshmi Cancer Sister 3 Aliyah Lakshmi Relation Name Status Comments Father Yaya Cohn Mother Jesenia Cohn Alive Paternal Grandmother Judith Paternal Uncle Arvil Sister 1 Susan Clem Sister 2 Ashley Cohn Sister 3 Aliyah Lakshmi Social History Tobacco Use Types Packs/Day Years Used Date Smoking Tobacco: Every Day Cigarettes 0.5 40.7 Started: 02/14/1984 Smokeless Tobacco: Never Tobacco Cessation:Ready to Q uit: No; Counseling Given: Yes Comments:Quit for 3 years when i found out i was in august 1998 Alcohol Use Standard Drinks/Week Comments Not Currently 0 (1 standard drink = 0.6 oz pure alcohol) Recently quit because of health issues [facility] Utilities Answer Date Recorded In the past 12 months has th e electric, gas, oil, or water [employer] threatened to shut off services in your [...] place to sleep or slept in a penitentiary (including now)? Patient refused 12/27/2022 Housing Stability [...] any time in the past 12 m onths, were you homeless or living in a penitentiary (including now)? No 03/09/2024 Food Insecurity Answer [...] Sign Reading Time Taken Comments Blood Pressure 128/82 07/23/2024 4:53 PM EDT Pulse 82 07/23/2024 4:53 PM EDT Temperature 36.7 C (98.1 F) 07/23/2024 4:53 PM EDT Respiratory Rate 20 07/23/2024 4:53 PM EDT Oxygen Saturation 95% 07/23/2024 4:53 PM EDT Inhaled Oxygen Concentration - - Weight 78.3 kg (172 lb 9.6 oz) 07/23/2024 4:53 P M EDT Height 160 cm (5' 3 ) 07/17/2023 8:41 AM EDT Body Mass Index 30.57 07/17/2023 8:41 AM EDT Plan of Treatment Upcoming Encounters Date Type Department Care Team (Late st Contact Info) Description 12/16/2024 1:00 PM EST Office Visit [facility] [place] [address] [place] [address] Jean Claude Mason, LEAD DRIVER - WOODYARD OPERATOR [address] [place] [address] 6 month Health Maintenance Due Date Last Done Comments Hepatitis A vaccine (1 of 2 - Risk 2-dose series) 1985 FIT/FOBT: Average risk 07/16/2011 Fecal-DNA (Cologuard): Average risk 07/16/2011 Sigmoidoscopy/CT colonography 07/16/2011 Flu vaccine (#1) 09/13/2024 11/28/2023, 01/12/2022 COVID-19 Vaccine ( season) 2024 01/12/2022, 03/05/2021, 06/11/2020, Additional history exists HIV screen 11/27/2024 Postponed from 1981 (Patient Refused) Depression Monitoring 03/09/2025 03/09/2024, 025 Hepatitis B vaccine (1 of 3 - 19+ 3-dose series) 03/12/2025 Postponed from 1985 (Patient Refused) Lung Cancer Screening &/or Counseling 04/08/2025 04/08/2024 A1C test (Diabetic or Prediabetic) 06/14/2025 06/14/2024 Breast cancer screen 11/29/2025 11/30/2023, 11/06/19 22 Colonoscopy 12/22/2026 12/22/2021, 12/22/2021 Colorectal Cancer Screen 12/22/2026 Lipids 11/23/2028 11/24/2023, 04/2022, 10/21/2021 DTaP/Tdap/Td vaccine (4 - Td or Tdap) 07/11/2033 07/12/2023, 10/04/2019, 10/15/2014 Shingles vaccine Completed 01/21/2022, 10/19/2021 Pneumococcal 0-49 years Vaccine Discontinued 11/28/2023 Pneumococcal [...] Procedure Name Priority Date/Time Associated Diagnosis Comments POCT GLYCOSYLATED HEMOGLOBIN (HGB A1C) Routine 06/14/2024 1:41 PM EDT Diabetes mellitus screening HEPATITIS C ANTIBODY Routine 05/14/2024 10:48 AM [...] Recently Relevant to Health Maintenance Results * POCT glycosylated hemoglobin (Hb A1C) (06/14/2024 1:41 PM EDT) Hemoglobin A1C 6.1 % BLOOD SPECIMEN / Unknown 06/14/2024 1:41 PM EDT us Jean Claude W Might LEAD DRIVER - WOODYARD OPERATOR POINT OF CARE TEST ORDE RABLES Final Result * Hepatitis C Antibody (05/14/2024 10:48 AM EDT) Hepatitis C Ab NONREACTIVE NONREACTIVE 05/15/19 10:48 AM EDT [facility] Comment: The hepatitis C procedure used in [...] 10:49 AM EDT us Misha Roman MD IMMUNOLOGY ORDERABLES Final Re sult [facility] [address] [place] [address], [facility] [phone] [place] [address], [facility] [phone] * CT Lung Screen (Initial/Annual/Baseline) (04/08/2024 6:10 PM EST) Anatomical Region Laterality Modality Computed Tomogra phy 04/08/2024 6:54 PM EST Impressions 04/08/2024 6:55 PM EST Mild emphysema with no suspicious pulmonary nodule. LUNG RADS: Lung-RADS 1 - Negative (v2022) Management: 12 month screening LDCT RECOMMENDATIONS: If you would like to register your patient with the [facility] Lung Nodule/Lung Cancer Screening Program, please contact the Nurse Navigator at [phone]). Narrative 04/08/2024 6:55 PM EST EXAMINATION: LOW [...] like to register your patient with the [facility], please contact the Nurse Navigator at [phone]). us Jean Claude Mason LEAD DRIVER - WOODYARD OPERATOR IMG CT ORDERABLES Final Result * KELSY LAVERN [...] the patient regarding the results. Performing Facility: [facility] Ritu Aguilar [place] [address] Narrative 12/05/2023 4:14 PM EDT HISTORY: Screening. TECHNIQUE: Bilateral digital screening mammogram with CAD. Digital breast tomosynthesis imaging. FINDINGS: Two views of each breast were obtained. There are scattered areas of fibroglandular density. BREAST DENSITY CODE: S: Scattered No change from prior study from [place] 11/05/2021. Suspicious calcifications: None. Suspicious mass: None. (If skin markers were applied, circles represent skin lesions and linear markers represent scars.) us Jean Claude Mason LEAD DRIVER - WOODYARD OPERATOR [facility] MAMMOGRAPHY ORDERAB LES Final Result * (ABNORMAL) Lipid Panel (11/24/2023 4:44 PM EDT) Cholesterol, Total 150 0 - 199 mg/dL 11/24/2023 4:44 PM EDT [facility] Comment: Cholesterol Guidelines: <200 Desirable 200-240 Borderline >240 Undesirable HDL 35(L) >40 mg/dL 11/24/2023 4:44 PM EDT [facility] Comment: HDL Guidelines: <40 Undesirable 40-59 Borderline >59 Desirable LDL Cholesterol 101(H) 0 - 100 mg/dL 11/24/2023 4:44 PM EDT [facility] Comment: LDL Guidelines: <100 Desirable 100-129 Near to/above Desirable 130-159 Borderline >159 Undesirable Direct (measured) LDL and calculated LDL are not interchangeable tests. Chol/HDL Ratio 4.0 11/24/2023 4:44 PM EDT [facility] Triglycerides 74 <150 mg/dL 11/24/2023 4:44 PM EDT [facility] Comment: Triglyceride Guidelines: <150 Desirable 150-199 Borderline 200-499 High >499 Very high Based on AHA Guidelines for fasting triglyceride, November 2011. VLDL 15 mg/dL 11/24/2023 4:44 PM EDT [facility] Blood BLOOD SPECIMEN / Unknown 11/24/2023 4:44 PM EDT 11/24/2023 4:45 PM EDT us Jean Claude Mason LEAD DRIVER - WOODYARD OPERATOR CHEMISTRY ORDERABLES Fi nal Result [facility] [address] [place] [address], [facility] [phone] [facility] [address] [place] [address], [facility] [phone] * Colonoscopy (12/22/2021 2:13 PM EST) Narrative Epic, User - 12/22/2021 2:13 PM EST No dictation us Hiral Jara MD ENDOSCOPY ORDERABLES Final Res ult from Last 3 Months or Most Recently Relevant to Health Maintenance Insurance [facility] [place] [place] Advance Directives Healthcare Agents on File Name Relationship Healthcare Agent [facility] p Communication Kang Bills Child Primary Decision Maker Care Teams Financial Services Representative Relationship Specialty Start Date End Date Jean Claude Mason LEAD DRIVER - WOODYARD OPERATOR [address] [place] [address] PCP - General Family Nurse Practitioner 10/14/21
--- OUTSIDE RECORDS SUMMARY | 2024-11-02 16:16 | XMS_ITS | Encounter Summary ---
Author Organization [facility] Address [id number] [address] [place] [address] Care Team Providers Care Furniture Cleaner Name Role Phone Jean Claude Mason FAST FOODS WORKER-RN ACCESS Primary Care Provider [phone] Encounter Details Date Type Department Care Team (Late st Contact Info) Description 12/30/2021 Orders Only [facility] [address] [place] [phone] Ref [place], [place] [address] Social History Tobacco Use Types Packs/Day Years [...] filedocumented in this encounter Care Teams Furniture Cleaner Relationship Specialty Start Date End Date Isabella, Jean Claude Chatman, FAST FOODS WORKER-RN ACCESS [address] [place] [address] PCP - General Family Medicine 11/11/21 documented as of this encounter
--- OUTSIDE RECORDS SUMMARY | 2024-11-02 16:16 | XMS_ITS | Encounter Summary ---
Author Organization [facility] Address [id number] [address] [place] [address] Care Team Providers Care Expressive Therapist Name Role Phone Jean Claude Mason BLADDER BLOWER-SALES AND LEASING CONSULTANT Primary Care Provider [phone] Reason for Visit * Reason Comments Med Refill Encounter Details Date Type Department Care Team (Late st Contact Info) Description 10/20/2019 Refill [facility] [address] [facility] [address] [place] [address] Gwen Maya, BLADDER BLOWER-SALES AND LEASING CONSULTANT [address] [place] [address] Med Refill Social History Tobacco Use Types [...] on filedocumented in this encounter Care Teams Expressive Therapist Relationship Specialty Start Date End Date Isabella, Jean Claude Chatman, BLADDER BLOWER-SALES AND LEASING CONSULTANT [address] [place] [id number] PCP - General Family Medicine 11/11/21 documented as of this encounter
--- OUTSIDE RECORDS SUMMARY | 2024-11-02 16:16 | XMS_ITS | Encounter Summary ---
Author Organization [facility] Address [address], [address] [place] [address] Care Team Providers Care Warranty Manager Name Role Jean Claude Arellano APRN - IRRIGATION SPECIALIST Primary Care Provider Reason for Visit * Reason Comments Medication Refill Encounter Details Date Type Department Care Team (Late st Contact Info) Description 10/09/2024 [facility]ill [facility] [address] [place] [address] Rosemary Taylor APRN - CNP [address] [place] [address] Medication Refill Social History Tobacco Use Types Packs/Day Years Used Date Smoking Tobacco: Every Day Cigarettes 0.5 40.7 Started: 02/14/1984 Smokeless Tobacco: Never Comments:Quit for 3 years wh en i found out i was in august 1998 Alcohol Use Standard Drinks/Week Comments Not Currently 0 (1 standard drink = 0.6 oz pure alcohol) Recently quit because of health issues [facility] Utilities Answer Date Recorded In the [...] to sleep or slept in a senior care (including now)? Patient refused 12/27/2022 Housing Stability [...] any time in the past 12 m [facility], were you homeless or living in a senior care (including now)? No 03/09/2024 Food Insecurity Answer [...] Description 12/16/2024 1:00 PM EST Office Visit [facility] [address] [phone] Jean Claude Mason APRN Praveen OMODY [address] [phone] month documented as of this encounter Visit Diagnoses Diagnosis Viral upper respiratory tract infection with cough Acute upper respiratory infections of unspecified site documented in this encounter Care Teams Warranty Manager Relationship Specialty Start Date End Date Jean Claude Mason APRN - CNP [address] [place] [address] PCP - General Family Nurse Practitioner 10/14/21 documented as of this encounter
--- OUTSIDE RECORDS SUMMARY | 2024-11-02 16:16 | XMS_ITS | Encounter Summary ---
Author Organization [facility] Address [id number] [address] [place] [address] Care Team Providers Care Hand Screen Printer Name Role Phone Jean Claude Mason GRISTMILL OPERATOR-PATHOLOGIST Primary Care Provider [phone] Reason for Visit * Reason Onset Date Comments referral 12/13/2021 Neurology refrer ral faxed. Encounter Details Date Type Department Care Team (Late st Contact Info) Description 12/14/20[facility] [address] [place] [address] Uyen Spears CMA referral (Neurology [...] filedocumented in this encounter Care Teams Hand Screen Printer Relationship Specialty Start Date End Date Might, Jean Claude Chatman, GRISTMILL OPERATOR-PATHOLOGIST [address] [place] [address] PCP - General Family Medicine 11/11/21 documented as of this encounter
--- OUTSIDE RECORDS SUMMARY | 2024-11-02 16:16 | XMS_ITS | Encounter Summary ---
Author Organization [facility] Address [address], [address] [place] [address] Care Team Providers Care Dry Lumber Grader Name Role Jean Claude Arellano APRN - TELECOM SPECIALIST Primary Care Provider Reason for Visit * Reason Comments Medication Refill Encounter Details Date Type Department Care Team (Late st Contact Info) Description 10/10/2024 [facility] [address] [place] [address] Rosemary Taylor APRN - CNP [address] [place] [address] Medication Refill Social History Tobacco Use Types Packs/Day Years Used Date Smoking Tobacco: Every Day Cigarettes 0.5 40.7 Started: 02/14/1984 Smokeless Tobacco: Never Comments:Quit for 3 years wh en i found out i was in august 1998 Alcohol Use Standard Drinks/Week Comments Not Currently 0 (1 standard drink = 0.6 oz pure alcohol) Recently quit because of health issues [facility] Utilities Answer Date Recorded In the past [...] place to sleep or slept in a skilled nursing (including now)? Patient refused 12/27/2022 Housing Stability [...] any time in the past 12 m [facility], were you homeless or living in a skilled nursing (including now)? No 03/09/2024 Food Insecurity Answer [...] Description 12/16/2024 1:00 PM EST Office Visit [facility] [address] [phone] Jean Claude Mason APRN Praveen MOODY [address] [phone] month documented as of this encounter Visit Diagnoses Diagnosis Viral upper respiratory tract infection with cough Acute upper respiratory infections of unspecified site documented in this encounter Care Teams Dry Lumber Grader Relationship Specialty Start Date End Date Jean Claude Mason APRN - CNP [address] [place] [address] PCP - General Family Nurse Practitioner 10/14/21 documented as of this encounter
--- OUTSIDE RECORDS SUMMARY | 2024-11-02 16:16 | XMS_ITS | Encounter Summary ---
Author Organization [facility] Address [address], [address] [place] [address] Care Team Providers Care Facilitator Name Role Phone Jean Claude Mason APRN, CNP Primary Care Provider Reason for Visit * Reason Onset Date Comments Medication Refill 10/24/2024 Encounter Details Date Type Department Care Team (Late st Contact Info) Description 10/24/[address] [facility] [place] [address] [place] [address] Jean Claude Mason APRN - CNP [address] [place] [address] Medication Refill Social History Tobacco Use Types Packs/Day Years Used Date Smoking Tobacco: Every Day Cigarettes 0.5 40.7 Started: 02/14/1984 Smokeless Tobacco: Never Comments:Quit for 3 years wh en i found out i was in august 1998 Alcohol Use Standard Drinks/Week Comments Not Currently 0 (1 standard drink = 0.6 oz pure alcohol) Recently quit because of health issues [facility] Utilities Answer Date Recorded In the past [...] place to sleep or slept in a care home (including now)? Patient refused 12/27/2022 Housing Stability [...] any time in the past 12 m [facility], were you homeless or living in a care home (including now)? No 03/09/2024 Food Insecurity Answer [...] Description 12/16/2024 1:00 PM EST Office Visit [facility] [address] [place] [address] Jean Claude Mason APRN - CNP [address] [place] [address] 6 month documented as of this encounter Visit Diagnoses Diagnosis Spinal stenosis of lumbosacral region Spinal stenosis, lumbar region, without neurogenic claudication documented in this encounter Care Teams Facilitator Relationship Specialty Start Date End Date Jean Claude Mason APRN - CNP [address] [place] [address] PCP - General Family Nurse Practitioner 10/14/21 documented as of this encounter
--- OUTSIDE RECORDS SUMMARY | 2024-11-02 16:16 | XMS_ITS | Encounter Summary ---
Author Organization [facility] Address [id number] [address] [place] [address] Care Team Providers Care Senior Architect Name Role Phone Jean Claude Mason CARDIOLOGY COORDINATOR-OBSTETRICS TECHNICIAN Primary Care Provider [phone] Encounter Details Date Type Department Care Team (Late st Contact Info) Description 12/14/2021 Orders Only [facility] [employer] [facility] [place] [address] Transcribe, Orders Support User Pain [...] pain documented in this encounter Care Teams Senior Architect Relationship Specialty Start Date End Date Isabella, Jean Claude Chatman APRN-OBSTETRICS TECHNICIAN [address] [place] [address] PCP - General Family Medicine 11/11/21 documented as of this encounter
--- NOTE | 2024-11-02 16:46 | ED_ITS ---
HPI HPI - General Adult General Chief complaint: Eye Problems Stated complaint: pupils are 2 different sizes Time Seen by Provider: 11/02/24 16:16 Source: patient Mode of arrival: walk-in Limitations: no limitations History of Present Illness HPI narrative: 59-year-old female presents because her right eye is dilated. She states she did not notice it but a coworker did and insisted that she come to the hospital to get checked. The patient states it was like this to a lesser degree 2 days ago. She has not been on any new medications but uses a scopolamine patch and applied a new one today. She does not have a headache and there is been no head injury. Left vision is normal. She states bright light makes her right eye hurt because her pupil is dilated. Related Data Home Medications ?Medication ?Instructions ?Recorded ?Confirmed albuterol sulfate 90 mcg/actuation inhalation 07/16/24 aerosol inhaler amlodipine 10 mg tablet mg 07/16/24 aripiprazole 2 mg tablet mg 07/16/24 buspirone 10 mg tablet mg 07/16/24 cetirizine 5 mg tablet mg 07/16/24 furosemide 40 mg tablet mg 07/16/24 gabapentin 600 mg tablet mg 07/16/24 hydroxyzine pamoate 50 mg capsule mg 07/16/24 levothyroxine 25 mcg tablet mcg 07/16/24 rifaximin 550 mg tablet (Xifaxan) mg 07/16/24 spironolactone 50 mg tablet mg 07/16/24 trazodone 50 mg tablet mg 07/16/24 buprenorphine 8 mg-naloxone 2 mg film 11/02/24 sublingual film fluticasone propionate 44 inhalation 11/02/24 mcg/actuation HFA aerosol inhaler furosemide 20 mg tablet mg 11/02/24 ondansetron HCl 4 mg tablet mg 11/02/24 polyethylene glycol 3350 17 g 11/02/24 gram/dose oral powder ranolazine 500 mg tablet,extended mg PO 11/02/24 release,12 hr scopolamine base 1 mg over 3 days 11/02/24 transdermal patch sertraline 100 mg tablet mg 11/02/24 tizanidine 4 mg tablet mg 11/02/24 Allergies Allergy/AdvReac Type Severity Reaction Status Date / Time codeine Allergy itchy Verified 11/02/24 16:21 amoxicillin (From Augmentin) AdvReac Severe Hives Verified 11/02/24 16:21 clavulanic acid (From AdvReac Severe Hives Verified 11/02/24 16:21 Augmentin) metoclopramide (From Reglan) AdvReac Severe Muscle Pain Verified 11/02/24 16:21 morphine AdvReac sedative Verified 11/02/24 16:21 Opioid HPI Opioid Management Most Recent Opioid Data: Last Pain Scale 10 02/12/24, 13:41 Review of Systems ROS Narrative A ten point review of systems is negative except as noted above. PFSH PFSH Social History Little interest or pleasure in doing things: not at all Feeling down, depressed, or hopeless: not at all Exam Narrative Exam Narrative: Nurses note and vital signs reviewed and patient is not hypoxic. General: The patient appears in no acute distress. Skin: Warm, dry, no pallor noted. There is no rash noted. Head: Normocephalic, atraumatic Eye: Normal conjunctiva, no drainage. Left pupil is normal in size and reactive. The right is dilated and not reactive. Extraocular movements are intact. Ears, Nose, Mouth, and Throat: oral mucosa is moist. Nares patent. Cardiovascular: Regular Rate and Rhythm Respiratory: Patient is in no distress, no accessory muscle use, lungs are clear to auscultation, no wheezing, rales or rhonchi Back: non-tender GI: Soft and nontender Musculoskeletal: The patient has no evidence of calf tenderness, no pitting edema, symmetrical pulses noted bilaterally Neurological: Awake alert and oriented. Cranial nerves II through XII are intact other than the pupil being dilated. Psychiatric: Cooperative Constitutional Vital Signs, click to edit/add: Last Vital Signs Temp 97.8 F 11/02/24 16:15 Pulse 69 11/02/24 16:15 Resp 14 11/02/24 16:15 BP 111/63 11/02/24 16:15 Pulse Ox 95 11/02/24 16:15 O2 Del Method Room Air 11/02/24 16:15 Course Vital Signs Vital signs: Vital Signs Temperature 97.8 F 11/02/24 16:15 Pulse Rate 69 11/02/24 16:15 Respiratory Rate 14 11/02/24 16:15 Blood Pressure 111/63 11/02/24 16:15 Pulse Oximetry 95 11/02/24 16:15 Oxygen Delivery Method Room Air 11/02/24 16:15 Temperature 97.8 F 11/02/24 16:15 Pulse Rate 69 11/02/24 16:15 Respiratory Rate 14 11/02/24 16:15 Blood Pressure 111/63 11/02/24 16:15 Pulse Oximetry 95 11/02/24 16:15 Oxygen Delivery Method Room Air 11/02/24 16:15 Medical Decision Making MDM Narrative Medical decision making narrative: The patient has placed a new scopolamine patch today and very likely the got some of the scopolamine in her right eye. She has no other symptoms and does not require a CAT scan. She is discharged home with reassurance. Treatment diagnosis and follow-up were discussed with the patient. Differential Diagnosis Differential Diagnosis: Medication side effect, head injury Discharge Plan Discharge Chief Complaint: Eye Problems Clinical Impression: Medication side effect Patient Disposition: Home, Self-Care Time of Disposition Decision: 16:46 Condition: Good Mode of Transportation: Private Vehicle Prescriptions / Home Meds: No Action furosemide 40 mg tablet gabapentin 600 mg tablet trazodone 50 mg tablet cetirizine 5 mg tablet hydroxyzine pamoate 50 mg capsule levothyroxine 25 mcg tablet amlodipine 10 mg tablet buspirone 10 mg tablet albuterol sulfate 90 mcg/actuation HFA aerosol inhaler INHALATION spironolactone 50 mg tablet aripiprazole 2 mg tablet Xifaxan 550 mg tablet tizanidine 4 mg tablet ondansetron HCl 4 mg tablet sertraline 100 mg tablet fluticasone propionate 44 mcg/actuation HFA aerosol inhaler INHALATION furosemide 20 mg tablet polyethylene glycol 3350 17 gram/dose powder scopolamine base 1 mg over 3 days patch 3 day ranolazine 500 mg tablet extended release 12 hr PO buprenorphine-naloxone 8-2 mg film Print Language: Vietnamese Instructions: Adverse Drug Reaction (ED) Referrals: THERESE MCCORD NP [Primary Care Provider] - 1 week
--- NOTE | 2024-11-02 17:17 | PC.NURSE ---
Pt presents for unequal pupils Pt states she noticed some blurred vision on but her glasses are broken and she normally wears them so she attributed that to this Today while at work patients coworkers told her that one pupil as larger than the other and insisted she comes to the ER Pt is elsewise asymptomatic and does not want to be here After asking if patient has started any new medications or used a scolamine patch, patient pointed out that she is wearing one now Pt was educated about this by Dr. Sosa Pt relieved and ready to elave
== END 2024-11-02 17:20 | disposition home or self-care (01) ==
PROVIDERS: Emergency Provider Emergency Medicine; Family Provider Family Medicine
DX: H57.04 Mydriasis (principal); T44.3X5A Adverse effect of other parasympatholytics [anticholinergics and antimuscarinics] and spasmolytics, initial encounter
CPT/HCPCS: 99281